=== PATIENT | female | born 1995 | race Caucasian/White ===

== ENCOUNTER → 2020-03-18 09:07 | Outpatient (CLI) | payer OTHER, SELFPAY ==
[2020-03-18 08:04] VITALS: BMI 25.3
[2020-03-18 09:24] LABS: Absolute Lymphocyte Count 1.43 X10^3/uL (0.83-4.51); Absolute Neutrophil Count 5.3 X10^3/uL (2.0-7.7); Basophil# 0.02 X10^3/uL; Basophil% 0.3 % (0-1); Eosinophil# 0.04 X10^3/uL; Eosinophils% 0.6 % (0-5); Hematocrit 39.9 % (37-47); Lymphocyte # 1.43 X10^3/ul (4.0); Lymphocyte % 19.9 % (19-41); Mean Corp Hgb Conc 32.6 g/dL (32-36); Mean Corpuscular Hgb 28.8 pg (27.0-32.0); Mean Corpuscular Volume 88.5 fL (81-99); Mean Platelet Vol. 9.5 fl (6.2-12.0); Monocyte# 0.35 X10^3/uL; Monocyte% 4.9 % (0-10); NRBC Flagged by Analyzer 0 % (0-5); Neutrophil # 5.34 X10^3/uL (2.7-7.7); Neutrophil % 74.2 % (47-70); Platelet Count 263 K/mm3 (150-450); RBC Distribution Width CV 13.2 % (11.6-14.6); RBC Distribution Width SD 42.5 fl (35.1-43.9); Red Blood Count 4.51 M/mm3 (4.2-5.4); White Blood Count 7.2 K/mm3 (4.4-11.0)
[2020-03-18 11:22] LABS: HIV - WCH Non-Reactive (Nonreactive); Hepatitis B Surface Antigen Non-Reactive (Nonreactive); Hepatitis C Antibody Non-Reactive (Nonreactive)
[2020-03-18 12:24] LABS: Rubella IgG < 0.2 IU/mL
[2020-03-18 16:15] LABS: Amphetamine Urine VISTA NEGATIVE (<1000 ng/mL); Barbiturate Urine VISTA NEGATIVE (< 200 ng/mL); Benzodiazepine Urine VISTA NEGATIVE (< 200 ng/mL); Cocaine Urine VISTA NEGATIVE (< 300 ng/mL); Ecstacy Urine VISTA NEGATIVE (< 500 ng/mL); Methadone Urine VISTA NEGATIVE (< 300 ng/mL); PCP Urine VISTA NEGATIVE (< 25 ng/mL); THC Urine VISTA NEGATIVE (< 50 ng/mL); Vista UDS pH Range 6
[2020-03-18 21:58] LABS: Chlamydia Trachomatis by PCR Negative (Negative); Neisserai gonorrhoeae by PCR Negative (Negative); Probe Check PASS; Sample Adequacy Control PASS; Specimen Processing Control PASS
[2020-03-20 21:56] LABS: Rapid Plasmin Reagin (RPR) NONREACTIVE (NONREACTIVE)
[2020-03-25 05:25] LABS: HPV Reflexed? NOT INDICATED
== END ==
PROVIDERS: PCP Family Medicine; Referring Provider Obstetrics & Gynecology; Visit Provider Obstetrics & Gynecology
DX: Z34.00 Encounter for supervision of normal first pregnancy, unspecified trimester (principal); Z12.4 Encounter for screening for malignant neoplasm of cervix
CPT/HCPCS: 36415; 80307; 85025; 86592; 86703; 86762; 86803; 86850; 86900; 86901; 87086; 87088; 87340; 87491; 87591; 88175; G0145

== ENCOUNTER → 2020-03-22 16:58 | Outpatient (CLI) | payer OTHER, SELFPAY ==
[2020-03-18 08:04] VITALS: BMI 25.3
--- NOTE | 2020-03-22 16:59 | US_ITS ---
STUDY: FIRST TRIMESTER OBSTETRICAL ULTRASOUND REASON FOR EXAM: Female, 24 years old. . Spotting. LMP: 12/22/2019 TECHNIQUE: Transvaginal PRIOR ULTRASOUND: None. FINDINGS: There is visualization of a single gestational sac in a normal intrauterine position. There is a visualized yolk sac. There is visualization of a live embryo. The crown-rump length (CRL) measures 6.61 cm, indicating an estimated gestational age (EGA) of 13 weeks, 0 days. The mean sac diameter corresponds to 10 weeks and 5 days. The sonographic age is 11 weeks and 6 days. The estimated delivery date is 10/05/2020. There is a 1.6 x 1.3 x 1.3 cm chorionic bump noted. There is demonstrated cardiac activity with a heart rate of 136 bpm. The uterus measures 11.0 x 10.7 x 7.2 cm. There is no demonstrated uterine fibroid. The cervix is closed. The right ovary measures 4.2 x 3.3 x 1.6 cm. There is no right ovarian cyst. There is no visualized right adnexal mass or complex lesion. The left ovary is not visualized. The cervix is not visualized. There is no fluid in the cul de sac. US/Transvaginal w/Preg US IMPRESSION: Single live intrauterine gestation, as described above. 1.6 x 1.3 x 1.3 cm chorionic bump. The differential diagnosis for this finding is a failed second gestation or a subchorionic hemorrhage bulging into the gestational sac. It can also be seen occasionally in patients undergoing fertility treatments. Electronically Signed: Wei Wang, at 18:34 EDT Tel , Service support ,
== END ==
PROVIDERS: PCP Family Medicine; Referring Provider Obstetrics & Gynecology; Visit Provider Obstetrics & Gynecology
DX: O26.851 Spotting complicating pregnancy, first trimester (principal); Z3A.13 13 weeks gestation of pregnancy
CPT/HCPCS: 76817

== ENCOUNTER → 2020-05-16 14:01 | Outpatient (CLI) | payer OTHER, SELFPAY ==
[2020-04-15 13:15] VITALS: BMI 25.3
--- NOTE | 2020-05-16 14:02 | US_ITS ---
STUDY: SECOND AND THIRD TRIMESTER OBSTETRICAL ULTRASOUND REASON FOR EXAM: Female, 24 years old anatomy LMP: 12/22/2019 TECHNIQUE: Transabdominal TECHNICAL QUALITY: Adequate. PRIOR ULTRASOUND: Comparison is made with prior study dated 03/22/2020. FINDINGS: There is a single intrauterine fetus. The fetus is in a cephalic presentation. There is demonstrated cardiac activity with a heart rate of 143 bpm. There is a normal amniotic fluid volume. The largest amniotic fluid pocket measures 3.8 cm x 3.2 cm. The amniotic fluid index (LENI) is within normal limits. The placenta is anterior in location and is not low lying. There are Grade 0 placental changes. The cervix measures 4.3 cm in length. The bilateral adnexal regions are normal. BIOMETRY: BPD: 4.74 cm: 20 weeks, 3 days HC: 18.35 cm: 20 weeks, 6 days AC: 15.85 cm: 21 weeks, 0 days FL: 3.51 cm: 21 weeks, 1 days CI: 75% FL/BPD: 74% FL/HC: FL/AC: 22% HC/AC: 1.16 age by current US: 20 weeks, 6 days. DYLAN by current US: 09/27/2020. Estimated weight: 390 grams, +/- 57 grams, 51 %. age by prior US: 19 weeks, 5 days. DYLAN by prior US: 10/05/2020. Age by LMP: 20 weeks, 6 days. DYLAN by LMP: 09/27/2020. ANATOMY: Gender: Female Cranium: Normal lateral ventricles. Normal choroid plexus. Normal cerebellum. Normal cisterna magna. Normal face, nose and lips. Chest: Normal 4-chamber heart. Abdomen/Pelvis: Normal diaphragm. Normal stomach. Normal abdominal wall. Normal cord insertion. Normal 3 vessel cord. Normal kidneys. Normal bladder. Spine: Normal cervical spine. Normal thoracic spine. Normal lumbar spine. Normal sacrum. Extremities: Normal bilateral upper extremities. Normal bilateral lower extremities. US/OB Anatomy Scan IMPRESSION: Single live intrauterine gestation with a mean gestational age of 19 weeks and 5 days. The measurements obtained today fall within the normal expected range. Electronically Signed: Azam Capellan, at 15:41 EDT , Service support ,
== END ==
PROVIDERS: PCP Family Medicine; Referring Provider Obstetrics & Gynecology; Visit Provider Obstetrics & Gynecology
DX: Z36.9 Encounter for antenatal screening, unspecified (principal)
CPT/HCPCS: 76805

== ENCOUNTER → 2020-07-10 09:05 | Outpatient (CLI) | payer OTHER, SELFPAY ==
[2020-06-17 15:02] VITALS: BMI 27.1
[2020-07-10 09:25] LABS: Absolute Neutrophil Count 4.7 X10^3/uL (2.0-7.7); Basophil# 0.03 X10^3/uL; Basophil% 0.5 % (0-1); Eosinophil# 0.03 X10^3/uL; Eosinophils% 0.5 % (0-5); Hematocrit 33.2 % (37-47); Hemoglobin 10.9 g/dL (12.0-15.0); Lymphocyte % 7.1 % (19-41); Mean Corp Hgb Conc 32.8 g/dL (32-36); Mean Corpuscular Hgb 29.6 pg (27.0-32.0); Mean Corpuscular Volume 90.2 fL (81-99); Mean Platelet Vol. 9.4 fl (6.2-12.0); Monocyte# 0.51 X10^3/uL; NRBC Flagged by Analyzer 0 % (0-5); Neutrophil # 4.67 X10^3/uL (2.7-7.7); Neutrophil % 82.5 % (47-70); POSITIVE DIFFERENTIAL YES; Platelet Count 220 K/mm3 (150-450); RBC Distribution Width CV 12.5 % (11.6-14.6); RBC Distribution Width SD 41.4 fl (35.1-43.9); Red Blood Count 3.68 M/mm3 (4.2-5.4); White Blood Count 5.7 K/mm3 (4.4-11.0)
[2020-07-10 09:40] LABS: Differential Indicated SCAN CRITERIA MET
[2020-07-10 09:45] LABS: Glucose Challenge Gest 1H 50g 94 mg/dL (70-140)
[2020-07-10 10:18] LABS: Platelet Estimate ADEQUATE (ADEQ); Red Cell Morphology NORM C+C NORMAL (NORM C&C)
== END ==
PROVIDERS: PCP Family Medicine; Referring Provider Obstetrics & Gynecology; Visit Provider Obstetrics & Gynecology
DX: Z34.90 Encounter for supervision of normal pregnancy, unspecified, unspecified trimester (principal); Z13.1 Encounter for screening for diabetes mellitus
CPT/HCPCS: 36415; 82950; 85025

== ENCOUNTER → 2020-09-04 | Outpatient (CLI) | payer OTHER, SELFPAY ==
[2020-09-04 10:54] VITALS: BMI 29.7
== END | disposition home or self-care (01) ==
LOC: LABSPEC 16:34
PROVIDERS: PCP Family Medicine; Visit Provider Obstetrics & Gynecology
DX: Z34.00 Encounter for supervision of normal first pregnancy, unspecified trimester (principal)
CPT/HCPCS: 87081

== ENCOUNTER 2020-09-19 11:10 | Outpatient (CLI) | payer OTHER, SELFPAY ==
[2020-09-10 13:05] VITALS: BMI 29.7
[2020-09-17 09:39] VITALS: BMI 29.9
[2020-09-19 11:53] VITALS: BP 116/70; PULSE 100; TEMP 37.2; O2SAT 94
[2020-09-19 12:13] VITALS: BMI 29.9
[2020-09-19 12:51] LABS: ROM Internal Control Test YES-OK TO RESULT pt. (Internal QC); ROM Patient Test Negative (Negative)
--- NOTE | 2020-09-19 13:10 | OB.TRI.PN ---
Progress Notes Date of Service: 09/19/20 Progress Note: Patient presents for triage evaluation secondary to leakage of fluid FHT: Moderate variability reactive no decelerations category I tracing [place]: No Contractions Assessment and plan: Reactive NST, ROM plus negative, reassuring maternal and status patient discharged to home to follow-up at next scheduled appointment. See problem list details for additional plan information. Laboratory Studies: Laboratory Tests 09/19/20 Range/Units 12:07 Vag Amniotic Fld Detect Negative (Negative) Multi Select Codes - Urinary/Genital Urinary/Genital CPT Codes: 39660-72 non-stress test Interp
== END 2020-09-19 13:15 | disposition home or self-care (01) ==
LOC: WPOUT 11:17 → OBT 11:18
PROVIDERS: PCP Family Medicine; Referring Provider Obstetrics & Gynecology; Visit Provider Obstetrics & Gynecology
DX: Z03.71 Encounter for suspected problem with amniotic cavity and membrane ruled out (principal)
CPT/HCPCS: 59025; 59050; 84112; 99218; C9803; G0378

== ENCOUNTER 2020-09-26 18:25 | Outpatient (CLI) | payer OTHER, SELFPAY ==
[2020-09-25 10:48] VITALS: BMI 30.6
[2020-09-26 18:46] VITALS: BMI 30.3
[2020-09-26 18:53] VITALS: BP 116/79; PULSE 90; TEMP 36.9; O2SAT 98
[2020-09-26 18:54] VITALS: BP 116/79; PULSE 85
--- NOTE | 2020-09-27 09:42 | OB.TRI.PN_ITS ---
Progress Notes Date of Service: 09/26/20 Progress Note: false labor no cervical change 130 moderate variability reactive no decelerations category I tracing [place]: no regular reactive NST dc home no change fu in office Multi Select Codes - Urinary/Genital Urinary/Genital CPT Codes: 56599-78 non-stress test Interp
== END 2020-09-26 20:41 | disposition home or self-care (01) ==
LOC: WPOUT 18:32 → WP 18:33
PROVIDERS: PCP Family Medicine; Referring Provider Obstetrics & Gynecology; Visit Provider Obstetrics & Gynecology
DX: O47.9 False labor, unspecified (principal); Z3A.00 Weeks of gestation of pregnancy not specified
CPT/HCPCS: 59025; 59050; 99218; G0378

== ENCOUNTER 2020-10-02 05:29 | Inpatient (IN) | payer OTHER, SELFPAY ==
[2020-10-02] VITALS (86 sets, daily range): BP systolic 100–152; BP diastolic 55–96; PULSE 69–116; TEMP 36.2–37.4; O2SAT 89–100; BMI 30.3
[2020-10-02] MEDS: Lactated Ringers 1,000 ML 200 ML IV ×3 (05:40→16:30)
[2020-10-02] MEDS: fentaNYL 100 MCG/2 ML Ampul IV (05:49)
[2020-10-02 05:51] LABS: Absolute Lymphocyte Count 1.37 X10^3/uL (0.83-4.51); Absolute Neutrophil Count 6.3 X10^3/uL (2.0-7.7); Basophil# 0.02 X10^3/uL; Basophil% 0.2 % (0-1); Eosinophil# 0.06 X10^3/uL; Eosinophils% 0.7 % (0-5); Hematocrit 34.8 % (37-47); Hemoglobin 10.8 g/dL (12.0-15.0); Lymphocyte # 1.37 X10^3/ul (4.0); Lymphocyte % 16.5 % (19-41); Mean Platelet Vol. 10.4 fl (6.2-12.0); Monocyte# 0.53 X10^3/uL; Monocyte% 6.4 % (0-10); NRBC Flagged by Analyzer 0 % (0-5); Neutrophil # 6.28 X10^3/uL (2.7-7.7); Neutrophil % 75.8 % (47-70); Platelet Count 228 K/mm3 (150-450); RBC Distribution Width CV 13.3 % (11.6-14.6); RBC Distribution Width SD 41.1 fl (35.1-43.9); White Blood Count 8.3 K/mm3 (4.4-11.0)
[2020-10-02] MEDS: Lactated Ringers 500 ML 999 ML IV ×3 (07:20→17:58)
--- NOTE | 2020-10-02 08:01 | PCM.HPOB.BLA ---
- Problem List (1) Active labor Status: Acute (2) 34 weeks gestation of Status: Acute Comment: electronic covid test ordered 08/21/2020sc (scheduled for 09/17/2020 at 0930) (3) Anemia affecting Status: Acute Comment: added iron (4) Influenza vaccination declined Status: Acute Comment: 06/17/2020sc (5) Rubella non-immune status, antepartum Status: Acute Comment: recommend avoidance, plan MMR . (6) Status: Acute Qualifiers: Comment: declines genetic, carrier and NTD. anatomy nl at [facility]. (7) Supervision of normal first Status: Acute Comment: PRR DYLAN 09/27/2020 [place] Spouse: Ambrosio History and Physical Date of Admission: 10/02/20 Intake Vital Signs 09/25/20 BP 122/80 H 09/25/20 Height 5 ft 3 in 09/25/20 Weight: 173 lb 09/25/20 BMI 30.6 Intake Visit Reasons: 39WK OB Chief Complaint: est ob Icer Machine Required: No Is patient in pain?: No Allergies No Known Allergies Allergy (Verified 09/25/20 10:51) Medications multivitamin no.47-iron fum 27 mg-folate no.1 1 mg-dha 300 mg capsule 1 cap PO DAILY 03/18/20 [History Confirmed 09/25/20] ferrous sulfate 325 mg (65 mg iron) tablet 325 mg PO BID 07/22/20 [History Confirmed 09/25/20] Last Menstral Period: 12/27/19 Zika: Zika virus screening: Negative : No [facility] Medical History No significant past medical history (Acute) Surgical History No significant past surgical history (Acute) Family History Father Hypertension Grandmother Cancer Heart disease Social History (Updated 09/25/20 @ 11:[address] 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 OB Visit DYLAN Calculator Estimated Delivery Date Method Current WG Current Estimate 09/27/20 Ultrasound #1 39w 5d Other Estimates 08/24/20 LMP (Uncertain) 44w 4d Expected Delivery Route/Plan Labor Preferences- CB/BF classes: encouraged - patient wants classes but undecided labor support person: Ambrosio labor intervention preferences: open to pitocin/AROM. Needs to discuss baby meds with pain management options preferred: desires natural, but open to epidural cut cord/dad catch: no : yes PP control planned: [] discussed possible routes of delivery and associated risks: discussed possible delivery modalities and possible indications for each including R/B/A of , VAVD, FAVD, and CS. questions answered. special requests: to announce gender Specific Issue/Plans flu vaccine: declines tdap vaccine: declines rhogam: NA LARC form signed: signed 07/10 movement and labor precautions reviewed. Problem list reviewed and updated with the most current plan of care details and appropriate orders placed. Relevant counseling for the gestational age provided. Continue routine care and follow up unless otherwise noted in visit notes/problem list details Initial Weight: 143 lb Date EGA Weight BP Urine Prot Glucose FHR FuHt Pres Dilation Effaced St Visit Note 04/15/20 16w 3d 143 lb (+0 oz) 104/76 Negative Negative 145 SM- no vb cramping, some ZHOU discussed supportive care 05/16/20 20w 6d 145 lb (+2 lb) 110/72 Negative Negative 145 SM- no vb cramping 06/17/20 25w 3d 153 lb (+10 lb) 122/80 Negative Negative 130 25 GP - no cramping or bleeding. Anatomy scan reviewed. Do not plan to find out gender. 07/10/20 28w 5d 158 lb 8 oz (+15 lb 8 oz) 110/76 Negative Negative 135 28 GP - no ctx, LOF, VB, DFM. GTT normal. LARC form signed - declines. Declines flu and TDAP. 07/22/20 30w 3d 158 lb (+15 lb) 122/84 Negative Negative 135 30 SM- no vb lof good fm no regular ctx 08/07/20 32w 5d 161 lb 4 oz (+18 lb 4 oz) 112/72 Negative Negative 125 32 GP - no ctx, LOF, VB, DFM. discussed labor preferences and routes of delivery. Planning on going bow hunting with . 08/21/20 34w 5d 163 lb (+20 lb) 114/80 Negative Negative 140 34 GP - no LOF, VB, DFM, regular ctx. Denies complaints. GP - no LOF, VB, DFM, regular ctx. Denies complaints. Having whole family over for Thanksgiving. 09/04/20 36w 5d 168 lb 2 oz (+25 lb 2 oz) 128/82 Negative Negative 135 36 Cephalic 0.5 40 -2 GP - no LOF, VB, dFM, reg ctx. GBS done today. 09/10/20 37w 4d 168 lb (+25 lb) 112/84 Negative Negative 140 37 Cephalic 1 60 -2 SM- no vb lof good fm no regular ctx 09/17/20 38w 4d 169 lb 4 oz (+26 lb 4 oz) 126/88 Trace Negative 145 38 Cephalic 1 60 -2 GP - no LOF, VB, DFM, ctx. Labor precautions reviewed. 09/25/20 39w 5d 173 lb (+30 lb) 122/80 145 39 Cephalic 1 70 -2 SM- no vb lof good fm no regular ctx discussed IOL 41 weeks cytotec ACOG First Trimester First Trimester: Desire for , Alcohol, Tobacco Cessation, Illicit/Recreational Drug/Substance Use, Intimate Partner Violence, Barriers to care, Unstable Housing, Communication Barriers, Environmental/Work Hazards, Anticipated Course of Care, Toxoplasmosis Precations, Use of Any medications, Sexual activity, Exercise, Dental Care, Sauna/Hot tub use, Seat Belt use, Childbirth classes/Hospital facilities, , Travel, Indications for US and Screening for Aneuploidy Diagnostics Diagnostics Diagnostics Glucose 1 Hr 50 gm 94 mg/dL (70-140) 07/10/20 Hgb 10.9 g/dL (12.0-15.0) L 07/10/20 Hct 33.2 % (37-47) L 07/10/20 Details: HIV: Urine Culture: Sequential Screen: NIPT Screen: ROS Const Reports system reviewed and no additional complaints, except as docu Card Reports system reviewed and no additional complaints, except as docu Resp Reports system reviewed and no additional complaints, except as docu GI Reports system reviewed and no additional complaints, except as docu, Reports nausea Reports system reviewed and no additional complaints, except as docu Musc Reports system reviewed and no additional complaints, except as docu Exam Const General: cooperative, healthy appearing, comfortable, anxious HENMT Head: normal to inspection Nose: external nose normal Face and sinus: normal facial exam Neck Neck: normal visual inspection, full ROM, no lymphadenopathy Thyroid: thyroid normal Chest Chest palpation & inspection: normal inspection of the chest Resp Effort & Inspection: normal respiratory effort GI Inspection: normal to inspection Palpation: soft, other (gravid uterus) Other: infant vertex and appropriate size for gestational age Other: Cervical Exam: Extrem General: pedal edema Assessment & Plan Problems 1. Supervision of normal first Z34.00 PRR DYLAN 09/27/2020 [place] Spouse: Ambrosio 2. Z34.90 declines genetic, carrier and NTD. anatomy nl at [facility]. 3. Rubella non-immune status, antepartum O99.891; Z28.3 recommend avoidance, plan MMR . 4. Influenza vaccination declined Z28.21 06/17/2020sc 5. Anemia affecting O99.019 added iron 6. 34 weeks gestation of Z3A.34 electronic covid test ordered 08/21/2020sc (scheduled for 09/17/2020 at 0930) Plan Patient presents IAL, plan expectant management for , pitocin/AROM PRN if needed. Pain management: plans epidural. GBS negative. Management of any complications: none I have reviewed the [facility] and made any clinically relevant updates. UPDATE- I have seen the patient and performed any clinically relevant updates to the history and physical exam. Mayuri Mckeon MD
[2020-10-02] MEDS: fentaNYL-bupivacaine (epidural) 100 ML BAG EPIDURAL ×2 (08:22→13:07)
[2020-10-02] MEDS: Oxytocin 30 units/NS 500 ml 30 UNITS/500 ML IV.SOLN IV (09:57)
[2020-10-02] MEDS: Oxytocin 30 units/NS 500 ml 30 UNITS/500 ML IV.SOLN 334 UNITS IV (18:38)
--- NOTE | 2020-10-02 19:22 | PCM.OPRPT ---
Problem List (1) Active labor Status: Acute (2) 34 weeks gestation of Status: Acute Comment: electronic covid test ordered 08/21/2020sc (scheduled for 09/17/2020 at 0930) (3) Anemia affecting Status: Acute Comment: added iron (4) Influenza vaccination declined Status: Acute Comment: 06/17/2020sc (5) Rubella non-immune status, antepartum Status: Acute Comment: recommend avoidance, plan MMR . (6) Status: Acute Qualifiers: Comment: declines genetic, carrier and NTD. anatomy nl at [facility]. (7) Supervision of normal first Status: Acute Comment: PRR DYLAN 09/27/2020 [place] Spouse: Ambrosio Vaginal Delivery Maternal Presentation: Active Labor 25-year-old G1, P0 at 40 weeks gestation admitted out of triage in active labor. Patient was augmented with Pitocin. Patient made cervical change to complete dilation and pushed for 2 hours with good maternal effort. head was noted to be at +2 station. The patient was becoming increasingly exhausted and maternal effort was worsening due to her level of exhaustion. Discussed with patient options for operative vaginal delivery versus continued pushing. Discussed with patient that given the amount of molding present, I recommend proceeding with a forceps assisted vaginal delivery if she elected for operative delivery. Patient voiced desire for operative vaginal delivery. The risk, benefits, indications, and alternatives to an operative vaginal delivery were discussed with the patient and she agreed to proceed. Amniotic Membrane Rupture Type: Spontaneous Amniotic Fluid Description: Clear Final DYLAN: 09/27/20 Gestational age: 40 Weeks and 5 Days Date of Procedure: 10/02/20 Pre-Operative Diagnosis: Term , active labor, maternal exhaustion Post-Operative Diagnosis: Same Surgery/ Procedure Performed: Forceps Assisted Vaginal Delivery Type of Anesthesia: Epidural Description of Procedure: The maternal bladder was drained. Ki[place] forceps were applied in the standard fashion and noted to be seated correctly along the sides of the head. Moderate caput and molding were noted. After a total of 4 pulls, the head was delivered atraumatically and no nuchal cord was noted. The anterior and posterior shoulders delivered without complication followed by the rest of the and the was placed on the maternal abdomen. The infant was noted to be somewhat stunned, therefore the cord was immediately clamped and cut and the was taken to the warmer by the nursery nurse. Gentle traction was applied to the cord and the placenta delivered spontaneously immediately following it was noted to be intact with three-vessel cord. The perineum and vagina were inspected and bilateral sulcal lacerations, bilateral labial lacerations, and a midline second-degree laceration were noted and repaired using 3-0 Vicryl Rapide suture. EBL was 350 cc. Patient and infant tolerated delivery well. Presentation: Vertex, LOP Placental Delivery Description: Spontaneous Placenta Disposition: [facility] Cord Vessel Description: 3 Vessels Cord Entanglement: None Estimated Blood Loss: 350 cc Infant A gender: Female Laceration: Left Mediolateral, Right Mediolateral, Perineal Extension/lac, Vaginal Extension/lac, 2nd degree Medications given after delivery: IV Pitocin Complications: None Multi Select Codes - Urinary/Genital Urinary/Genital CPT Codes: 33157 Vaginal Delivery global pkg - forceps assisted delivery
--- NOTE | 2020-10-02 19:32 | DCINST_ITS ---
Discharge Diet: No Restrictions Discharge Activity: Return to Normal Activity, May not drive while taking narcotic pain medications., May Shower May resume sexual activity in: 4-6 weeks Additional Activity Instructions:: Nothing in the vagina for 4-6 weeks. You may return to work/school in 6 weeks. Call your doctor if your incision/area has: Continuous Slow Oozing, Sudden Increased Bleeding, Increased Pain/ Swelling, Increased Redness, Foul Smelling Discharge Additional Instructions: If you experience any of the following, contact your healthcare provider. * Bleeding that soaks a pad every hour for 2 hours * Fever 100.4 or higher * Unrelieved incision or abdominal pain * Swelling, redness, discharge or bleeding from your incision or episiotomy site * Your incision begins to separate * Problems urinating (including inability to urinate or burning while urinating). * Visual changes * Severe headache * Flu-like symptoms * Pain or redness in one of both of your breasts * Pain, warmth, tenderness or swelling in your legs, especially the calf area * Frequent nausea and vomiting * Symptoms of depression or anxiety If you experience any of the following, call 911 or go to the nearest Emergency Room. * Chest pain * Problems breathing * Seizure activity * Partial or complete paralysis of a body part, slurred speech, weakness or drooping of the face, or a sudden inability to walk or hold your balance Allergies/Adverse Reactions: Allergies No Known Allergies Allergy (Verified 10/02/20 05:35) Medications to take at Discharge multivitamin no.47-iron fum 27 mg-folate no.1 1 mg-dha 300 mg capsule 1 cap PO DAILY 03/18/20 ferrous sulfate 325 mg (65 mg iron) tablet 325 mg PO BID 07/22/20 Cholecalciferol (Vitamin D3) [Vitamin D3] 25 mcg PO DAILY 10/02/20 Falkner-3 Fatty Acids/Fish Oil [Falkner 3 Fish Oil Softgel] 1 ea PO DAILY 10/02/20 When: Call to make an appointment with your doctor in 6 weeks. If you had elevated Blood Pressure or 4th degree laceration you will need to be seen in 2 weeks. Primary Care Physician: Luis Prather DO [Primary Care Provider] - Test Results: Test results from this visit will be discussed in further detail at your follow- up appointment, if applicable.
--- NOTE | 2020-10-02 19:46 | NURSING ---
1945- uncertain time of rupture for certain, pt did not feel any leaking fluids, had bulging bow at 0524 and no membrane/bow felt at the 0728 check. during labor fluid was clear
[2020-10-02] MEDS: Naproxen 250 MG Tablet 500 MG PO (20:38)
[2020-10-02] MEDS: Acetaminophen 500 MG Tablet 1000 MG PO (20:57)
--- NOTE | 2020-10-02 22:34 | NURSING ---
Pt noted to have b/l mediolateral (sucal), perineal and vaginal 2 degree tear
[2020-10-03 00:05] VITALS: BP 105/59; PULSE 104; RESP 16; TEMP 37.3
[2020-10-03 03:39] VITALS: BP 98/58; PULSE 91; RESP 16; TEMP 36.7
[2020-10-03] MEDS: Acetaminophen 500 MG Tablet 1000 MG PO ×3 (03:42→20:14)
[2020-10-03] MEDS: Naproxen 250 MG Tablet 500 MG PO ×3 (03:42→20:15)
--- NOTE | 2020-10-03 08:08 | PN_ITS ---
Patient Problems: Active and Suspected Problems (Last Reviewed 09/25/20 @ 10:51 by Liana House) Active labor (Acute) 34 weeks gestation of (Acute) electronic covid test ordered 08/21/2020sc (scheduled for 09/17/2020 at 0930) Anemia affecting (Acute) added iron Influenza vaccination declined (Acute) 06/17/2020sc Rubella non-immune status, antepartum (Acute) recommend avoidance, plan MMR . (Acute) declines genetic, carrier and NTD. anatomy nl at [facility]. Supervision of normal first (Acute) PRR DYLAN 09/27/2020 [place] Spouse: Ambrosio Subjective: Patient doing well without complaints. Tolerating PO. Ambulating and voiding without difficulty. breast feeding well. Denies chest pain, shortness of breath, calf pain/swelling, fevers, chills, lightheadedness. - Physical Exam Vitals/I&O's: Vital Signs Temp Pulse Resp BP Pulse Ox 98.0 F 91 16 98/58 L 100 10/03/20 03:39 10/03/20 03:39 10/03/20 03:39 10/03/20 03:39 10/02/20 18:28 Oxygen Delivery Method Room Air Weight: 171 lb 4.787 oz Body Mass Index (BMI) 30.3 Intake and Output for Last 24 Hours 10/01/20 10/02/20 10/03/20 23:59 23:59 23:59 Intake Total 5485.05 / 5485.05 Output Total 275 / 275 1500 / 1500 Balance 5210.05 / 5210.05 -1500 / -1500 General: Alert, Oriented x3 Abdomen: Soft, Non Tender, Non-Distended, - - ff below U Current Medications Acetaminophen (Acetaminophen 500 Mg Tablet) 1,000 mg PO Q8H OWEN Last Admin: 10/03/20 03:42 Dose: 1,000 mg Documented by: Bisacodyl (Bisacodyl 10 Mg Suppository) 10 mg RECTAL UD PRN PRN Reason: If no BM Dibucaine (Dibucaine 30 Gm Tube) 1 applic TOPICAL TID PRN PRN; Protocol PRN Reason: Discomfort Hydrocortisone (Hydrocortisone 2.5% Crm) 1 applic TOPICAL TID PRN PRN; Protocol PRN Reason: Discomfort Methylergonovine Maleate (Methylergonovine 0.2 Mg/Ml Ampul) 0.2 mg IM X1 PRN PRN Reason: Excess bleeding/uterine atony Naproxen (Naproxen 250 Mg Tablet) 500 mg PO Q8H OWEN Last Admin: 10/03/20 03:42 Dose: 500 mg Documented by: Ondansetron HCl (Ondansetron 4 Mg/2 Ml Vial) 4 mg IV Q4H PRN PRN PRN Reason: Nausea Oxycodone HCl (Oxycodone 5 Mg Tablet) 5 mg PO Q4H PRN PRN PRN Reason: Pain Score 6-10 Senna/Docusate Sodium (Senna/Docusate Sodium 1 Tablet) 1 - 2 tablet PO DAILY PRN PRN PRN Reason: Constipation Simethicone (Simethicone 80 Mg Tablet) 80 mg PO PCHS PRN PRN Reason: Indigestion/Stomach pain Sodium Chloride (0.9% Saline Lock 10 Ml Syringe) 5 - 15 ml IV UD PRN PRN Reason: SALINE FLUSH Medical Necessity - Tobacco Use Smoking Status: Never smoker Assessment/Plan All Active Problems (Last Reviewed 09/25/20 @ 10:51 by Liana House) Active labor (Acute) 34 weeks gestation of (Acute) Anemia affecting (Acute) Influenza vaccination declined (Acute) Rubella non-immune status, antepartum (Acute) (Acute) Supervision of normal first (Acute) s/p PPD # 1 1. routine post delivery care 2. breast feeding- support given 3. rh positive 4. rubella nonimmune
[2020-10-03 08:09] VITALS: BP 103/60; PULSE 87; RESP 16; TEMP 36.8; O2SAT 98
[2020-10-03 12:23] VITALS: BP 93/52; PULSE 105; RESP 16; TEMP 37; O2SAT 96
[2020-10-03 16:15] VITALS: BP 108/65; PULSE 90; RESP 18; TEMP 37.2; O2SAT 97
[2020-10-03 20:00] VITALS: BP 108/58; PULSE 99; RESP 16; TEMP 36.8; O2SAT 100
[2020-10-04 02:16] VITALS: BP 97/72; PULSE 89; RESP 16; TEMP 36.3; O2SAT 99
[2020-10-04] MEDS: Acetaminophen 500 MG Tablet 1000 MG PO (05:38)
[2020-10-04] MEDS: Naproxen 250 MG Tablet 500 MG PO (05:38)
[2020-10-04 08:29] VITALS: BP 112/67; PULSE 82; RESP 15; TEMP 36.7; O2SAT 97
--- NOTE | 2020-10-04 09:47 | PCM.PN.OB ---
Patient Problems: Active and Suspected Problems (Last Reviewed 09/25/20 @ 10:51 by Liana House) Active labor (Acute) 34 weeks gestation of (Acute) electronic covid test ordered 08/21/2020sc (scheduled for 09/17/2020 at 0930) Anemia affecting (Acute) added iron Influenza vaccination declined (Acute) 06/17/2020sc Rubella non-immune status, antepartum (Acute) recommend avoidance, plan MMR . (Acute) declines genetic, carrier and NTD. anatomy nl at [facility]. Supervision of normal first (Acute) PRR DYLAN 09/27/2020 [place] Spouse: Ambrosio Subjective: Patient doing well without complaints. Tolerating PO. Ambulating and voiding without difficulty. Breast feeding well. Denies chest pain, shortness of breath, calf pain/swelling, fevers, chills, lightheadedness. - Physical Exam Vitals/I&O's: Vital Signs Temp Pulse Resp BP Pulse Ox 98.0 F 82 15 112/67 97 10/04/20 08:29 10/04/20 08:29 10/04/20 08:29 10/04/20 08:29 10/04/20 08:29 Oxygen Delivery Method Room Air Weight: 171 lb 4.787 oz Body Mass Index (BMI) 30.3 Intake and Output for Last 24 Hours 10/02/20 10/03/20 10/04/20 23:59 23:59 23:59 Intake Total 5485.05 / 5485.05 Output Total 275 / 275 1500 / 1500 Balance 5210.05 / 5210.05 -1500 / -1500 General: Alert, Oriented x3, Cooperative, No apparent distress, Well developed, Well nourished HEENT: Atraumatic, PERRLA, EOMI, Normocephalic Neck: Supple, No JVD Lungs: Normal air movement Cardiovascular: Regular rate Abdomen: Soft, Non Tender, Non-Distended, - - fundus firm Extremities: No edema, No Calf Tenderness Neurological: Cranial nerves II-XII grossly intact, Neuro grossly intact Psych/Mental Status: Normal Affect, Appropriate Current Medications Acetaminophen (Acetaminophen 500 Mg Tablet) 1,000 mg PO Q8H OWEN Last Admin: 10/04/20 05:38 Dose: 1,000 mg Documented by: Bisacodyl (Bisacodyl 10 Mg Suppository) 10 mg RECTAL UD PRN PRN Reason: If no BM Dibucaine (Dibucaine 30 Gm Tube) 1 applic TOPICAL TID PRN PRN; Protocol PRN Reason: Discomfort Hydrocortisone (Hydrocortisone 2.5% Crm) 1 applic TOPICAL TID PRN PRN; Protocol PRN Reason: Discomfort Methylergonovine Maleate (Methylergonovine 0.2 Mg/Ml Ampul) 0.2 mg IM X1 PRN PRN Reason: Excess bleeding/uterine atony Naproxen (Naproxen 250 Mg Tablet) 500 mg PO Q8H OWEN Last Admin: 10/04/20 05:38 Dose: 500 mg Documented by: Ondansetron HCl (Ondansetron 4 Mg/2 Ml Vial) 4 mg IV Q4H PRN PRN PRN Reason: Nausea Oxycodone HCl (Oxycodone 5 Mg Tablet) 5 mg PO Q4H PRN PRN PRN Reason: Pain Score 6-10 Senna/Docusate Sodium (Senna/Docusate Sodium 1 Tablet) 1 - 2 tablet PO DAILY PRN PRN PRN Reason: Constipation Simethicone (Simethicone 80 Mg Tablet) 80 mg PO PCHS PRN PRN Reason: Indigestion/Stomach pain Sodium Chloride (0.9% Saline Lock 10 Ml Syringe) 5 - 15 ml IV UD PRN PRN Reason: SALINE FLUSH Medical Necessity - Tobacco Use Smoking Status: Never smoker Assessment/Plan All Active Problems (Last Reviewed 09/25/20 @ 10:51 by Liana House) Active labor (Acute) 34 weeks gestation of (Acute) Anemia affecting (Acute) Influenza vaccination declined (Acute) Rubella non-immune status, antepartum (Acute) (Acute) Supervision of normal first (Acute) s/p PPD # 2 1. routine post delivery care 2. breast feeding- support given 3. rh positive 4. rubella immune
--- NOTE | 2020-10-04 10:37 | NURSING ---
pt refused mmr vaccine
== END 2020-10-04 10:45 | disposition home or self-care (01) | DRG 807 ==
LOC: WPOUT 05:30 → WP 05:30
PROVIDERS: Admitting Provider Obstetrics & Gynecology; PCP Family Medicine; Referring Provider Obstetrics & Gynecology; Visit Provider Obstetrics & Gynecology
DX: O75.81 Maternal exhaustion complicating labor and delivery (principal); Z37.0 Single live birth; Z3A.40 40 weeks gestation of pregnancy; D64.9 Anemia, unspecified; O99.02 Anemia complicating childbirth; O70.1 Second degree perineal laceration during delivery
CPT/HCPCS: 59025; 59050; 85025; 86850; 86900; 86901; 99218; J7120; G0378

== ENCOUNTER 2020-12-22 09:54 | Emergency (ER) | payer OTHER, SELFPAY ==
[2020-11-15 10:36] VITALS: BMI 26.7
[2020-12-22 09:55] VITALS: BP 119/91; PULSE 109; RESP 16; TEMP 36.3; O2SAT 100; BMI 24.7
--- NOTE | 2020-12-22 10:08 | ED.DCSUM_ITS ---
- ER Visit Summary Date of Service: 12/22/20 Chief Complaint: Abdominal cramping with nausea, vomiting and diarrhea History of Present Illness: The patient is a 25 F seen in past medical history and no prior surgical history. Patient is status post vaginal delivery about 3 months ago without complications. States she has been feeling well. Has had no recent symptoms. When she awoke this morning she had nausea then vomiting and diarrhea. She has had diffuse abdominal cramping since that time. States diarrhea is watery. She denies any melena or hematemesis. No fever. No localizing pain. She is never had any abdominal surgeries. She denies any dysuria. No one else at home is ill. Physical Examination: Well-appearing 25-year-old female. Accompanied by family. Vital signs are stable afebrile. H EENT exam unremarkable. Moist with membranes. Neck nontender no lymphadenopathy. Lungs clear to auscultation bilaterally. Heart regular rhythm rate about 100 105 no murmur. Abdomen is soft. Nondistended. Normal bowel sounds. No peritoneal signs. No signs of obstruction. No localizing tenderness to either the right upper nor the right lower quadrant. Patient is moving all 4 extremities. Nontender. No edema. Back nontender. Skin unremarkable. Neurologically she is awake alert with no focal motor deficits. Test Results: None Repeat exam at 11:03 AM patient is doing well. Abdomen is benign. She is receiving IV fluids and is already received her Zofran. She is currently drinking some marcus desire. Emergency Department Course and Treatment: Patient's history and exam are consistent with a viral gastroenteritis. Her abdomen is benign. She is really not tender anywhere in the abdomen. She will be treated with IV fluids times a liter. IV Zofran. Reassessed and p.o. fluid challenge. Treatment Plan: Zofran as needed for nausea. Fluids and rest. Return if worse. Follow-up if not improving. Disposition: Discharge Impression: Acute viral gastroenteritis Mild dehydration This note was generated with [employer] dictation software. It may contain incorrect words, spelling, and punctuation that were not noted in review of the chart prior to signing ED Disposition - Plan for ED Patient: Disposition: Home or Assisted Living Instructions: ED Gastroenteritis, Viral (Adult) Prescriptions: Ondansetron [Zofran Odt] 4 mg PO Q8H PRN PRN #10 tablet PRN Reason: Nausea Prescription Printed Referrals: Luis Prather, [Primary Care Provider] - 1-2 Days if not improving Additional Instructions: Plenty of fluids and rest. Tylenol and/or Motrin for pain Zofran as needed for nausea. Return if you are feeling worse or unable keep fluids down. Follow-up with your doctor if not improving.
--- NOTE | 2020-12-22 10:11 | ED.DEP ---
ED Disposition - Plan for ED Patient: Disposition: Home or Assisted Living Instructions: ED Gastroenteritis, Viral (Adult) Prescriptions: Ondansetron [Zofran Odt] 4 mg PO Q8H PRN PRN #10 tablet PRN Reason: Nausea Prescription Printed Referrals: Luis Prather DO [Primary Care Provider] - 1-2 Days if not improving Additional Instructions: Plenty of fluids and rest. Tylenol and/or Motrin for pain Zofran as needed for nausea. Return if you are feeling worse or unable keep fluids down. Follow-up with your doctor if not improving.
[2020-12-22] MEDS: 0.9% Normal Saline 1,000 ML 1000 ML IV (10:45)
[2020-12-22] MEDS: Ondansetron 4 MG/2 ML Vial IV (10:45)
[2020-12-22 11:58] VITALS: BP 124/77; PULSE 68; RESP 15; O2SAT 98
== END 2020-12-22 12:00 | disposition home or self-care (01) ==
PROVIDERS: Emergency Provider Emergency Medicine; PCP Family Medicine
DX: A08.4 Viral intestinal infection, unspecified (principal); E86.0 Dehydration
CPT/HCPCS: 96361; 96374; 99284; J7030; A4216; J2405

== ENCOUNTER → 2023-09-21 | Outpatient (CLI) | payer SELFPAY ==
[2023-09-21 13:27] LABS: hCG Titer Quant., Serum 5505 mIU/mL (1-3)
== END | disposition home or self-care (01) ==
LOC: LAB 12:02
PROVIDERS: PCP Family Medicine; Referring Provider Obstetrics & Gynecology; Visit Provider Obstetrics & Gynecology
DX: N92.0 Excessive and frequent menstruation with regular cycle (principal)
CPT/HCPCS: 36415; 84702

== ENCOUNTER → 2023-09-23 | Outpatient (CLI) | payer SELFPAY ==
--- NOTE | 2023-09-23 15:25 | US_ITS ---
STUDY: FIRST TRIMESTER OBSTETRICAL ULTRASOUND REASON FOR EXAM: Female, 28 years old viability LMP: . TECHNIQUE: Transvaginal TECHNICAL QUALITY: Adequate. PRIOR ULTRASOUND: None. FINDINGS: There is visualization of a single gestational sac in a normal intrauterine position. The mean sac diameter (MSD) measures 1.7 cm, indicating an estimated gestational age (EGA) of 6 weeks, 4 days. The gestational sac shape is within normal limits. There is a visualized yolk sac. The yolk sac measures 0.3 cm. The placenta is non-visualized. There is visualization of a live embryo. The crown-rump length (CRL) measures 0.9 cm, indicating an estimated gestational age (EGA) of 7 weeks, 0 days. There is demonstrated cardiac activity with a heart rate of 90 bpm. The estimated gestation age (EGA) by LMP is 7 weeks, 5 days. The estimated date of delivery (DYLAN) by LMP is 05/06/2024. The estimated gestation age (EGA) by US is 6 weeks, 6 days. The estimated date of delivery (DYLAN) by US is 05/12/2024. The uterus measures 8.9 x 6.4 x 4.9 cm. There is no demonstrated uterine fibroid. The cervix is closed. The right ovary measures 4.2 x 2.3 x 1.8 cm. There is no right ovarian cyst. There is no visualized right adnexal mass or complex lesion. The left ovary measures 3.8 x 2.7 x 2.5 cm. Within the left ovary there is a cyst measuring 1.8 x 1.2 x 1.6 cm with mild thickening of the wall and peripheral flow most compatible with corpus luteum cyst. There is no visualized left adnexal mass or complex lesion. There is minimal fluid in the cul de sac. US/Transvaginal w/Preg US IMPRESSION: Single intrauterine gestation with ultrasound age of 6 weeks and 6 days and estimated date of delivery of 05/12/2024. cardiac activity of 90 bpm. Remainder of the exam unremarkable. Electronically Signed: Valorie Shelley MD at 17:18 EST ,
== END | disposition home or self-care (01) ==
LOC: US 15:24
PROVIDERS: PCP Family Medicine; Referring Provider Advanced Practice Midwife; Visit Provider Advanced Practice Midwife
DX: O26.859 Spotting complicating pregnancy, unspecified trimester (principal); Z3A.00 Weeks of gestation of pregnancy not specified
CPT/HCPCS: 76817

== ENCOUNTER → 2023-09-23 | Outpatient (CLI) | payer SELFPAY ==
[2023-09-23 11:39] LABS: hCG Titer Quant., Serum 6279 mIU/mL (1-3)
== END | disposition home or self-care (01) ==
PROVIDERS: PCP Family Medicine; Referring Provider Advanced Practice Midwife; Visit Provider Advanced Practice Midwife
DX: O26.859 Spotting complicating pregnancy, unspecified trimester (principal); Z3A.00 Weeks of gestation of pregnancy not specified
CPT/HCPCS: 36415; 84702

== ENCOUNTER → 2023-09-29 | Outpatient (CLI) | payer SELFPAY ==
[2023-09-29 12:06] LABS: hCG Titer Quant., Serum 208 mIU/mL (1-3)
[2023-09-29 12:12] LABS: Thyroid Stim Hormone (TSH) 1.15 uIU/mL (0.358-3.74)
[2023-10-08 21:07] LABS: Testosterone Free 1.4 pg/mL (0.0-4.2)
== END | disposition home or self-care (01) ==
LOC: PAVLAB 11:19
PROVIDERS: Advanced Practice Midwife; PCP Family Medicine; Referring Provider Registered Nurse; Visit Provider Registered Nurse
DX: O03.9 Complete or unspecified spontaneous abortion without complication (principal); N92.6 Irregular menstruation, unspecified
CPT/HCPCS: 36415; 82627; 83036; 84402; 84439; 84443; 84702; 82626

== ENCOUNTER → 2023-10-01 | Outpatient (CLI) | payer SELFPAY ==
--- OUTSIDE RECORDS SUMMARY | 2023-10-01 08:02 | XMS RPT_ITS | CCD ---
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 School Name Role Phone NICK MARRBRANDO Steven Unavailable Unavailable JEM CUNNINGHAM Unavailable Unavailable JEM CUNNINGHAM Unavailable Unavailable JED SILVERMAN Unavailable Unavailable GABRIELLA VICENTE Unavailable Unavailable WELLINGTON ADHKIZZY Unavailable Unavailable LEIGHANN, SASHA WALLS Unavailable Unavaila ble LAWTON, SASHA KAVITA Unavailable Unavaila ble LAWTON, SASHA KAVITA Unavailable Unavaila ble Results Test Name Value Interpretation Reference Range Facil ity Encounters Encounter Date Encounter Type Care Provider Facility Start: 05-17-2018 End: 05-17-2018 Patient encounter SASHA KAVITA LAWTON [facility] Start: 07-08-2017 End: 07-10-2017 Ambulatory [facility]OR[facility] MARR Facility:A Payers Date Payer Category Payer Unknown [id number] Summary Purpose Family History No Family History Records FoundNo Family History Records Found Advance Directives No Advanced Directives Records FoundNo Advanced Directives Records Found Additional Source Comments INFORMATION SOURCE (unrecogn ized section and content) DATE CREATED AUTHOR AUTHOR'S ORGANIZ ATION 05/22/2018 [facility] FOR RECORDS PERTAINING TO PATIENTS WHO ARE OR HAVE BEEN ENROLLED IN A CHEMICAL DEPENDENCY/SUBSTANCEABUSE PROGRAM, SOME INFORMATION MAY BE OMITTED. This clinical summary was aggregated from multiple sources. Caution should be exercised in using it in the provision of clinical care. This summary normalizes information from multiple sources, and as a consequence, information in this document may materially change the coding, format and clinical context of patient data. In addition, data may be omitted in some cases. CLINICAL DECISIONS SHOULD BE BASED ON THE PRIMARY CLINICAL RECORDS. [facility] [employer] provides no warranty or guarantee of the accuracy or completeness of information in this document.
[2023-10-01 08:48] LABS: hCG Titer Quant., Serum 96 mIU/mL (1-3)
== END | disposition home or self-care (01) ==
PROVIDERS: PCP Family Medicine; Referring Provider Advanced Practice Midwife; Visit Provider Advanced Practice Midwife
DX: O03.9 Complete or unspecified spontaneous abortion without complication (principal)
CPT/HCPCS: 36415; 84702

== ENCOUNTER → 2023-10-11 | Outpatient (CLI) | payer SELFPAY ==
[2023-10-11 12:22] LABS: hCG Titer Quant., Serum 4 mIU/mL (1-3)
== END | disposition home or self-care (01) ==
PROVIDERS: PCP Family Medicine; Referring Provider Registered Nurse; Visit Provider Registered Nurse
DX: O03.9 Complete or unspecified spontaneous abortion without complication (principal)
CPT/HCPCS: 36415; 84702

== ENCOUNTER → 2024-02-24 | Outpatient (CLI) | payer SELFPAY ==
[2024-02-24 10:30] LABS: Internal QC Validated? YES +Cl - CLEAR BKGD
[2024-02-24 10:31] LABS: Pregnancy, Serum, hCG Quali. POSITIVE Negative
[2024-02-24 11:03] LABS: hCG Titer Quant., Serum 40 mIU/mL (1-3)
== END | disposition home or self-care (01) ==
PROVIDERS: PCP Family Medicine; Referring Provider Nurse Practitioner Family; Visit Provider Nurse Practitioner Family
DX: N91.2 Amenorrhea, unspecified (principal)
CPT/HCPCS: 36415; 84702; 84703

== ENCOUNTER → 2024-02-26 | Outpatient (CLI) | payer SELFPAY ==
[2024-02-26 08:17] LABS: hCG Titer Quant., Serum 105 mIU/mL (1-3)
[2024-02-27 07:06] LABS: PROGESTERONE 9.7 ng/mL (.)
== END | disposition home or self-care (01) ==
LOC: LAB 07:05
PROVIDERS: PCP Family Medicine; Referring Provider Nurse Practitioner Family; Visit Provider Nurse Practitioner Family
DX: N92.6 Irregular menstruation, unspecified (principal); O03.9 Complete or unspecified spontaneous abortion without complication
CPT/HCPCS: 36415; 84144; 84702

== ENCOUNTER 2024-02-28 07:36 | Outpatient (CLI) | payer SELFPAY ==
[2024-02-28 09:45] LABS: hCG Titer Quant., Serum 287 mIU/mL (1-3)
== END 2024-02-28 23:59 | disposition home or self-care (01) ==
PROVIDERS: PCP Family Medicine; Referring Provider Nurse Practitioner Women's Health; Visit Provider Nurse Practitioner Women's Health
DX: N91.2 Amenorrhea, unspecified (principal)
CPT/HCPCS: 36415; 84702

== ENCOUNTER → 2024-03-02 | Outpatient (CLI) | payer SELFPAY ==
[2024-03-02 10:50] LABS: hCG Titer Quant., Serum 1152 mIU/mL (1-3)
== END | disposition home or self-care (01) ==
LOC: PAVLAB 09:40
PROVIDERS: PCP Family Medicine; Referring Provider Nurse Practitioner Women's Health; Visit Provider Nurse Practitioner Women's Health
DX: N91.2 Amenorrhea, unspecified (principal)
CPT/HCPCS: 36415; 84702

== ENCOUNTER → 2024-03-07 | Outpatient (CLI) | payer SELFPAY ==
--- NOTE | 2024-03-07 14:23 | US_ITS ---
STUDY: FIRST TRIMESTER OBSTETRICAL ULTRASOUND REASON FOR EXAM: Female, 28 years old dating LMP: 12/21/2023 TECHNIQUE: Transvaginal TECHNICAL QUALITY: Adequate. PRIOR ULTRASOUND: None. FINDINGS: There is visualization of a single gestational sac in a normal intrauterine position. The mean sac diameter (MSD) measures 1.3 cm, indicating an estimated gestational age (EGA) of 6 weeks, 1 days. The gestational sac shape is within normal limits. There is a visualized yolk sac. The yolk sac measures 2 mm. The placenta is non-visualized. There is no demonstrated embryo ( pole). The estimated gestation age (EGA) by LMP is 11 weeks, 0 days. The estimated date of delivery (DYLAN) by LMP is 09/26/2024. The estimated gestation age (EGA) by US is 6 weeks, 1 days. The estimated date of delivery (DYLAN) by US is 10/30/2024. The uterus measures 10.5 x 6.4 x 5.6 cm. There is no demonstrated uterine fibroid. The cervix is closed. The right ovary measures 4.6 x 4.6 x 2.0 cm. There is no right ovarian cyst. There is no visualized right adnexal mass or complex lesion. The left ovary measures 3.8 x 3.9 x 2.2 cm. There is no left ovarian cyst. There is no visualized left adnexal mass or complex lesion. There is mild free fluid around the right adnexa. US/Transvaginal w/Preg US IMPRESSION: Single very early intrauterine gestation with ultrasound EGA of approximately 6 weeks 1 day. No cardiac activity or pole seen yet-viability cannot be established. Recommend short interval follow-up. Electronically Signed: Lex Delgado MD at 22:45 EDT ,
== END | disposition home or self-care (01) ==
LOC: OPUS 14:21
PROVIDERS: PCP Family Medicine; Referring Provider Obstetrics & Gynecology; Visit Provider Obstetrics & Gynecology
DX: Z78.9 Other specified health status (principal); N91.2 Amenorrhea, unspecified
CPT/HCPCS: 76817

== ENCOUNTER → 2024-03-22 | Outpatient (CLI) | payer SELFPAY ==
--- NOTE | 2024-03-22 09:02 | US_ITS ---
STUDY: FIRST TRIMESTER OBSTETRICAL ULTRASOUND REASON FOR EXAM: Female, 28 years old viability LMP: January 24, 2024. TECHNIQUE: Transvaginal TECHNICAL QUALITY: Adequate. PRIOR ULTRASOUND: Comparison is made with prior study dated March 07, 2024. FINDINGS: There is visualization of a single gestational sac in a normal intrauterine position. The mean sac diameter (MSD) measures 3.4 cm, indicating an estimated gestational age (EGA) of 8 weeks, 4 days. The gestational sac shape is within normal limits. There is a visualized yolk sac. The yolk sac measures 4 mm. The placenta is non-visualized. There is visualization of a live embryo. The crown-rump length (CRL) measures 1.3 cm, indicating an estimated gestational age (EGA) of 7 weeks, 4 days. There is demonstrated cardiac activity with a heart rate of 148 bpm. The estimated gestation age (EGA) by LMP is 8 weeks, 2 days. The estimated date of delivery (DYLAN) by LMP is April 29, 2025. The estimated gestation age (EGA) by US is 8 weeks, 1 days. The estimated date of delivery (DYLAN) by US is generally 23/05/2025. The uterus measures 12.4 cm x 7.6 cm x 6.7 cm. There is no demonstrated uterine fibroid. The cervix is closed. The right ovary measures 5 cm x 4 cm x 2.1 cm. There is a 2.1 cm x 2.3 cm x 1.9 cm right corpus luteal cyst. There is no visualized right adnexal mass or complex lesion. The left ovary measures 3.8 cm x 3.9 cm x 1.5 cm. There is no left ovarian cyst. There is no visualized left adnexal mass or complex lesion. There is no fluid in the cul de sac. US/Transvaginal w/Preg US IMPRESSION: Single live intrauterine gestation with mean gestational age of 8 weeks and 1 day. 2.1 cm x 2.3 cm x 1.9 cm right corpus luteum cyst. Electronically Signed: Azam Capellan MD at 15:27 EDT ,
== END | disposition home or self-care (01) ==
LOC: US 09:01
PROVIDERS: PCP Family Medicine; Referring Provider Obstetrics & Gynecology; Visit Provider Obstetrics & Gynecology
DX: Z34.90 Encounter for supervision of normal pregnancy, unspecified, unspecified trimester (principal); Z78.9 Other specified health status
CPT/HCPCS: 76817

== ENCOUNTER → 2024-04-14 | Outpatient (CLI) | payer SELFPAY ==
[2024-04-18 02:07] LABS: Chlamydia By Nucleic Acid AMP Negative (Negative); Gonococcus By Nucleic Acid AMP Negative (Negative)
[2024-04-18 16:34] LABS: HPV Reflexed? NOT INDICATED
== END | disposition home or self-care (01) ==
PROVIDERS: PCP Family Medicine; Referring Provider Registered Nurse; Visit Provider Registered Nurse
DX: O99.210 Obesity complicating pregnancy, unspecified trimester (principal); O09.90 Supervision of high risk pregnancy, unspecified, unspecified trimester
CPT/HCPCS: 87086; 87491; 87591; 88175; G0145

== ENCOUNTER → 2024-05-12 | Outpatient (CLI) | payer OTHER, SELFPAY ==
[2024-05-12 11:34] LABS: Absolute Lymphocyte Count 1.23 X10^3/uL (0.83-4.51); Absolute Neutrophil Count 4.4 X10^3/uL (2.0-7.7); Basophil# 0.02 X10^3/uL; Basophil% 0.3 % (0-1); Eosinophil# 0.03 X10^3/uL; Eosinophils% 0.5 % (0-5); Hematocrit 37.1 % (37-47); Hemoglobin 12.6 g/dL (12.0-15.0); Lymphocyte # 1.23 X10^3/ul (0.83-4.51); Lymphocyte % 20.9 % (19-41); Mean Corpuscular Hgb 29.4 pg (27.0-32.0); Mean Corpuscular Volume 86.7 fL (81-99); Mean Platelet Vol. 9.7 fl (6.2-12.0); Monocyte# 0.22 X10^3/uL; Monocyte% 3.7 % (0-10); NRBC Flagged by Analyzer 0 % (0-5); Neutrophil # 4.37 X10^3/uL (2.7-7.7); Neutrophil % 74.4 % (47-70); Platelet Count 250 K/mm3 (150-450); RBC Distribution Width CV 13.6 % (11.6-14.6); RBC Distribution Width SD 41.8 fl (35.1-43.9); Red Blood Count 4.28 M/mm3 (4.2-5.4); White Blood Count 5.9 K/mm3 (4.4-11.0)
[2024-05-12 12:04] LABS: Hemoglobin A1c 4.8 % (3.8-5.6)
[2024-05-12 12:27] LABS: hCG Titer Quant., Serum 36956 mIU/mL (1-3)
[2024-05-12 12:40] LABS: HIV - WCH Non-Reactive (Nonreactive); Hepatitis B Surface Antigen Non-Reactive (Nonreactive); Hepatitis C Antibody Non-Reactive (Nonreactive); Rubella IgG Non-Reactive (Nonreactive); Syphilis Antibodies Non-reactive
== END | disposition home or self-care (01) ==
PROVIDERS: Nurse Practitioner Family; PCP Family Medicine; Referring Provider Registered Nurse; Visit Provider Registered Nurse
DX: O99.210 Obesity complicating pregnancy, unspecified trimester (principal); E66.9 Obesity, unspecified; O03.9 Complete or unspecified spontaneous abortion without complication; O09.90 Supervision of high risk pregnancy, unspecified, unspecified trimester
CPT/HCPCS: 36415; 83036; 84702; 85025; 86703; 86762; 86780; 86803; 86850; 86900; 86901; 87340

== ENCOUNTER → 2024-06-13 | Outpatient (CLI) | payer SELFPAY ==
--- NOTE | 2024-06-13 12:06 | US_ITS ---
INDICATION: anatomy scan EXAMINATION: Ultrasound US OB Greater Than 14 Weeks TECHNIQUE: Transabdominal pelvic ultrasound was performed. COMPARISON: Prior study dated: 04/14/2024 LMP: 01/25/2024 Beta-hCG: Unknown. Provided EGA: 20 weeks 0 days FINDINGS: INTRAUTERINE GESTATION(s): Single. ESTIMATED GESTATIONAL AGE: 19 weeks 3 days ESTIMATED DUE DATE (DYLAN): 11/04/2024 BIOMETRIC MEASUREMENTS: HEAD CIRCUMFERENCE: 16.91 cm which corresponds to 19 weeks 4 days. BIPARIETAL DIAMETER: 4.63 cm which corresponds to 20 weeks 0 days. ABDOMINAL CIRCUMFERENCE: 14.39 cm which corresponds to 19 weeks 5 days. FEMORAL LENGTH: 2.79 cm which corresponds to 18 weeks 4 days. ANATOMY: Cerebellum: 2.0 cm Cisterna Magna: 0.5 cm Lateral Ventricle: 0.6 cm Face: Normal Spine: Normal Four-chamber Heart: Normal Diaphragm: Normal Fluid Filled Stomach: Normal Fluid Filled Bladder: Normal Three-vessel Cord: Normal Cord Insertion: Normal Kidneys: The renal pelvis is measures 0.4 cm bilaterally. Extremities: Normal HEART MOTION is 136 bpm. AMNIOTIC FLUID MAXIMUM VERTICAL POCKET): 5 cm ESTIMATED WEIGHT: 285 Percentile 15%. BIOPHYSICAL PROFILE (BPP): Not assessed. PRESENTATION: Cephalic PLACENTA: Anterior. There is no placenta previa or abruption. CERVIX: The cervix is closed. Cervical length 4.4 cm. FREE FLUID: None. US/OB Anatomy w/ Transvaginal IMPRESSION: Single live intrauterine of gestational age by ultrasound of 19 weeks 3 days. No acute abnormality. Electronically Signed: Ankit Chiang MD at 22:02 EDT ,
== END | disposition home or self-care (01) ==
PROVIDERS: PCP Family Medicine; Referring Provider Obstetrics & Gynecology; Visit Provider Obstetrics & Gynecology
DX: O09.90 Supervision of high risk pregnancy, unspecified, unspecified trimester (principal); Z3A.00 Weeks of gestation of pregnancy not specified
CPT/HCPCS: 76805; 76817

== ENCOUNTER → 2024-08-09 | Outpatient (CLI) | payer SELFPAY ==
[2024-08-09 12:18] LABS: Absolute Neutrophil Count 5.7 X10^3/uL (2.0-7.7); Basophil# 0.02 X10^3/uL; Basophil% 0.3 % (0-1); Eosinophil# 0.04 X10^3/uL; Eosinophils% 0.6 % (0-5); Hematocrit 34.7 % (37-47); Hemoglobin 11.4 g/dL (12.0-15.0); Lymphocyte % 15.2 % (19-41); Mean Corp Hgb Conc 32.9 g/dL (32-36); Mean Corpuscular Hgb 29.5 pg (27.0-32.0); Mean Corpuscular Volume 89.9 fL (81-99); Mean Platelet Vol. 10.2 fl (6.2-12.0); Monocyte# 0.37 X10^3/uL; Monocyte% 5.1 % (0-10); NRBC Flagged by Analyzer 0 % (0-5); Neutrophil # 5.72 X10^3/uL (2.7-7.7); Neutrophil % 78.7 % (47-70); Platelet Count 247 K/mm3 (150-450); RBC Distribution Width CV 13.7 % (11.6-14.6); Red Blood Count 3.86 M/mm3 (4.2-5.4); White Blood Count 7.3 K/mm3 (4.4-11.0)
[2024-08-09 12:22] LABS: Glucose Challenge Gest 1H 50g 126 mg/dL (70-140)
[2024-08-09 12:52] LABS: HIV - WCH Non-Reactive (Nonreactive); Syphilis Antibodies Non-reactive
== END | disposition home or self-care (01) ==
LOC: BWCLAB 09:45
PROVIDERS: PCP Family Medicine; Referring Provider Advanced Practice Midwife; Visit Provider Advanced Practice Midwife
DX: O09.90 Supervision of high risk pregnancy, unspecified, unspecified trimester (principal); Z3A.00 Weeks of gestation of pregnancy not specified; Z13.1 Encounter for screening for diabetes mellitus
CPT/HCPCS: 36415; 82950; 85025; 86703; 86780

== ENCOUNTER → 2024-09-07 | Outpatient (CLI) | payer SELFPAY ==
--- NOTE | 2024-09-07 08:30 | US_ITS ---
STUDY: SECOND AND THIRD TRIMESTER OBSTETRICAL ULTRASOUND - LIMITED REASON FOR EXAM: Female, 29 years old uterine size greater than dates LMP: January 25, 2024. PRIOR ULTRASOUND: Comparison is made with prior study dated June 13, 2024. TECHNIQUE: Transabdominal TECHNICAL QUALITY: Adequate. FINDINGS: There is a single intrauterine fetus. The fetus is in a breech presentation. There is demonstrated cardiac activity with a heart rate of 125 bpm. There is a normal amniotic fluid volume. The largest amniotic fluid pocket measures 7.7 cm. The amniotic fluid index (LENI) is 18.9 cm. The placenta is anterior in location and is not low lying. There are Grade 1 placental changes. BIOMETRY: BPD: 8.5 cm: 34 weeks, 2 days: 92% HC: 30.6 cm: 34 weeks, 1 days: 62% AC: 28.3 cm: 32 weeks, 2 days: 50% FL: 5.7 cm: 30 weeks, 0 days: 2% Age by LMP: 32 weeks, 2 days. DYLAN by LMP: October 31, 2024. age by prior US: 31 weeks, 5 days. DYLAN by prior US: November 04, 2024. age by current US: 32 weeks, 6 days. DYLAN by current US: October 27, 2024. Estimated weight: 1884 grams, +/- 283 grams, 31 percentile. US/OB Limited With Biometrics IMPRESSION: Single live intrauterine gestation with a mean gestational age of 31 weeks and 5 days. The measurements obtained today fall within normal expected range. Electronically Signed: Azam Capellan MD at 14:28 EST ,
== END | disposition home or self-care (01) ==
LOC: US 08:30
PROVIDERS: PCP Family Medicine; Referring Provider Advanced Practice Midwife; Visit Provider Advanced Practice Midwife
DX: O26.849 Uterine size-date discrepancy, unspecified trimester (principal); Z3A.00 Weeks of gestation of pregnancy not specified
CPT/HCPCS: 76816

== ENCOUNTER 2024-10-12 14:04 | Outpatient (CLI) | payer SELFPAY ==
--- NOTE | 2024-10-12 14:33 | US_ITS ---
STUDY: SECOND AND THIRD TRIMESTER OBSTETRICAL ULTRASOUND REASON FOR EXAM: Female, 29 years old leni LMP: January 25, 2024 TECHNIQUE: Transabdominal TECHNICAL QUALITY: Adequate. PRIOR ULTRASOUND: September 07, 2024 FINDINGS: There is a single intrauterine fetus. The fetus is in a cephalic presentation. There is demonstrated cardiac activity with a heart rate of 124 bpm. There is a normal amniotic fluid volume. The largest amniotic fluid pocket measures 8.3 cm. The amniotic fluid index (LENI) is 24.9 cm. The placenta is anterior There are Grade 2 placental changes. The cervix is not measured.. BIOMETRY: BPD: 9.2 cm: 37 weeks, 3 days HC: 33 cm: 37 weeks, 5 days AC: 34.4 cm: 38 weeks, 2 days FL: 6.5 cm: 33 weeks, 4 days CI: 78% FL/BPD: 71 FL/HC: 20 FL/AC: 19 HC/AC: 1.0 age by current US: 37 weeks, 0 days. DYLAN by current US: November 02, 2024. Estimated weight: 3113 grams, +/- 467 grams, 53 %. Age by LMP: 37 weeks, 2 days. DYLAN by LMP: October 31, 2024. IMPRESSION: 37 week intrauterine . Borderline polyhydramnios. Electronically Signed: Tapan Cabezas MD at 20:28 EST , STUDY: OBSTETRICAL ULTRASOUND - BIOPHYSICAL PROFILE REASON FOR EXAM: Female, 29 years old leni LMP: January 25, 2024 PRIOR ULTRASOUND: None. TECHNIQUE: September 07, 2024 TECHNICAL QUALITY: Adequate. FINDINGS: There is a single intrauterine fetus. The fetus is in a cephalic presentation. There is demonstrated cardiac activity with a heart rate of 124 bpm. Borderline polyhydramnios. The largest amniotic fluid pocket measures 8.3 cm. The amniotic fluid index (LENI) is 24.9 cm. The placenta is anterior There are Grade 2 placental changes. Age by LMP: 37 weeks, 2 days. DYLAN by LMP: October 31, 2024. age by prior US: 3 7 weeks, 6 days. DYLAN by prior US: October 27, 2024. age by current US: 37 weeks, 0 days. DYLAN by current US: November 02, 2024. BIOPHYSICAL PROFILE: Breathing Movements (FBM): 2 Gross Body Movements (GBM): 2 Tone (FT): 2 Amniotic Fluid Volume (AFV): 2 TOTAL SCORE: US/OB Limited With Biometrics IMPRESSION: Normal biophysical profile of 05/11. Electronically Signed: Tapan Cabezas MD at 20:32 EST ,
[2024-10-12 15:01] VITALS: PULSE 98; O2SAT 99
[2024-10-12 15:02] VITALS: BP 121/76; PULSE 95; RESP 16; TEMP 36.4
[2024-10-12 15:07] VITALS: BMI 36.3
[2024-10-12 15:12] VITALS: BP 128/83; PULSE 93
[2024-10-12 15:26] LABS: Hematocrit 35.3 % (37-47); Hemoglobin 11.6 g/dL (12.0-15.0); Mean Corp Hgb Conc 32.9 g/dL (32-36); Mean Corpuscular Hgb 28.8 pg (27.0-32.0); Mean Corpuscular Volume 87.6 fL (81-99); Mean Platelet Vol. 9.8 fl (6.2-12.0); Platelet Count 209 K/mm3 (150-450); RBC Distribution Width CV 13.8 % (11.6-14.6); RBC Distribution Width SD 44.1 fl (35.1-43.9); Red Blood Count 4.03 M/mm3 (4.2-5.4); White Blood Count 8.5 K/mm3 (4.4-11.0)
[2024-10-12 15:28] VITALS: BP 122/82; PULSE 94
[2024-10-12 15:43] VITALS: BP 125/79; PULSE 86
[2024-10-12 15:56] VITALS: BP 126/75; PULSE 88
[2024-10-12 16:21] LABS: AST(SGOT) 22 U/L (15-37); Alanine Aminotransfer ALT/SGPT 27 U/L (13-56); EST Glomerular Filtration Rate 158 mL/min (>60); Est Glom Filt Rate - Afr Amer 191 mL/min (>60); Uric Acid 3.8 mg/dL (2.6-6.0)
--- NOTE | 2024-10-12 17:31 | OB.TRI.HP_ITS ---
HPI - General HPI Narrative ATA BURGOS, is a 29 y/o @ 37 weeks who presents to L&D to rule out pre- eclampsia due to lower extremity edema and bp of 130's/80's in the office. She denies headache or visual changes. Maternal Data Information DYLAN Calculator Estimated Delivery Date Method Current WG Current Estimate 10/31/24 Ultrasound #2 37w 2d PFSH PFS Medical History Rubella non-immune status, antepartum Spontaneous miscarriage Active labor 34 weeks gestation of Anemia affecting Influenza vaccination declined Supervision of normal first Spotting Spotting in early No significant past medical history Home Medications ?Medication ?Instructions ?Recorded ?Last Taken ?Type multivit-min no.71-iron fum 28 1 cap PO DAILY 04/07/24 10/11/24 21:00 History mg-folate no.1 1 mg-dha 300 mg 1 cap capsule (PNV-[place]) calcium 150 mg tablet mg PO 10/12/24 10/11/24 21:00 History magnesium glycinate 100 mg (as 100 mg PO DAILY 10/12/24 10/11/24 21:00 History glycinate) tablet (Mag Glycinate) 100 mg Allergy/AdvReac Type Severity Reaction Status Date / Time No Known Allergies Allergy Verified 10/12/24 15:03 Family History Father Hypertension Grandmother Cancer Heart disease Surgical History No significant past surgical history Social History adopted: No household members: spouse and children housing: house number of children: 1 current occupational status: unemployed 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 current occupational exposures/hazards: No pets and animals: No history of recent travel: Yes ([place]) out of state: Yes out of country: Yes sexually active: Yes Smoking Status: Never smoker second hand exposure: Yes alcohol intake: never substance use type: does not use well-balanced diet: daily or most days caffeine: No eating out: rarely or never during the past year weight has: remained stable what type of physical activity do you participate in: none cornelius/sikhism: Quaker seatbelt use: sometimes do you feel safe at home: Yes additional social history: Ambrosio- siding and reroofing History 3 Elective abortions Hx Para 1 Spontaneous abortions 1 Hx # Term Pregnancies 1 Ectopic pregnancies Hx # Pregnancies Multiple births # of living children 1 Past Pregnancies Del. Date Name GA/Weeks Outcome Route Bth Weight Gen Labor Lgth Anesthesia Del Locatn Provider FOB 10/02/20 Kena 40 live - full term 7lbs 1oz Female epidural [facility] Delivery Date: 10/02/20 Last Updated by: Emilie Lake forceps assisted Visit Details Expected Delivery Route/Plan Labor Preferences- CB/BF classes: [] labor support person: [] labor intervention preferences: [] pain management options preferred: [] cut cord/dad catch: [] : [] PP control planned: [] discussed possible routes of delivery and associated risks: [] special requests: [] Plans Covid status: [] Flu vaccine: declined Tdap vaccine: declined Rhogam: na LARC form signed: declined movement and labor precautions reviewed. Problem list reviewed and updated with the most current plan of care details and appropriate orders placed. Relevant counseling for the gestational age provided. Continue routine care and follow up unless otherwise noted in visit notes/problem list details OB Flowsheet Initial Weight: 175 lb Date -?-?-?-?-?-?-?-?-?-?-?-?- EGA Weight BP Urine Prot -?-?-?-?-?-?-?-?-?-?-?-?- Glucose FHR FuHt Pres Dilation -?-?-?-?-?-?-?-?-?-?-?-?- Effaced St Visit Note 04/14/24 -?-?-?-?-?-?-?-?-?-?-?-?- 11w 3d 175 lb (+0 oz) 110/74 -?-?-?-?-?-?-?-?-?-?-?-?- 156 -?-?-?-?-?-?-?-?-?-?-?-?- LC- CRL 4.5cm co n with LMP. declines genetics/carrier screening. hbga1c for obesity added to routine ob labs. 05/12/24 -?-?-?-?-?-?-?-?-?-?-?-?- 15w 3d 173 lb (-2 lb) 107/74 -?-?-?-?-?-?-?-?-?-?-?-?- 145 -?-?-?-?-?-?-?-?-?-?-?-?- SM no vb crampin g needs nob labs drawn 06/13/24 -?-?-?-?-?-?-?-?-?-?-?-?- 20w 0d 175 lb 8 oz (+8 oz) 106/72 Negative -?-?-?-?-?-?-?-?-?-?-?-?- Negative 140 20 -?-?-?-?-?-?-?-?-?-?-?-?- KW- no vb/ck ng. anatomy US today. PRR 07/12/24 -?-?-?-?-?-?-?-?-?-?-?-?- 24w 1d 180 lb (+5 lb) 122/81 Negative -?-?-?-?-?-?-?-?-?-?-?-?- Negative 130 24 -?-?-?-?-?-?-?-?-?-?-?-?- kw-no vb/crampin g. good fm. no concerns today. 28 week labs discussed. 08/09/24 -?-?-?-?-?-?-?-?-?-?-?-?- 28w 1d 184 lb 6 oz (+9 lb 6 oz) 106/73 Negative -?-?-?-?-?-?-?-?-?-?-?-?- Negative 140 31 -?-?-?-?-?-?-?-?-?-?-?-?- JV- no lof, vagi nal bleeding, or dec fm. 3rd trimester labs done today. declines tdap, rsv, and flu shots. 08/23/24 -?-?-?-?-?-?-?--?-?-?-?-?- 30w 1d 189 lb 8 oz (+14 lb 8 oz) 132/83 Negative -?-?-?-?-?-?-?-?-?-?-?-?- Negative 135 34 -?-?-?-?-?-?-?-?-?-?-?-?- kw- no vb/lof/ct x. good fm. growth US ordered. 09/07/24 -?-?-?-?-?-?-?-?-?-?-?-?- 32w 2d 192 lb (+17 lb) 97/71 Negative -?-?-?-?-?-?-?-?-?-?-?-?- Negative 121 33 -?-?-?-?-?-?-?-?-?-?-?-?- JV- growth is 33 1st% (50Th for AC) and breech today. plan to rpt bedside scan at 36 weeks 09/22/24 -?-?-?-?-?-?-?-?-?-?-?-?- 34w 3d 195 lb 6 oz (+20 lb 6 oz) 112/78 Negative -?-?-?-?-?-?-?-?-?-?-?-?- Negative 140 34 -?-?-?-?-?-?-?-?-?-?-?-?- SM- no vb lof go od fm no reugalr ctx 10/12/24 -?-?-?-?-?-?-?-?-?-?-?-?- 37w 2d 202 lb 4 oz (+27 lb 4 oz) 121/78 Negative -?-?-?-?-?-?-?-?-?-?-?-?- Negative 120 43 1 -?-?-?-?-?-?-?-?-?-?-?-?- 60 -3 KW- no vb/ lof/ctx. good fm. ZHOU for last 2 days. BLE swelling pre e labs today and GBS. some decreased movement. to WP for monitoring and labs ROS Constitutional Constitutional: Reports systems reviewed and no addt'l complaints, except as documented Gastrointestinal Gastrointestinal: Denies bloating, constipation, cramping, diarrhea, nausea or vomiting Genitourinary Genitourinary: Reports other Details: Denies vaginal odor, vaginal bleeding, or vaginal discharge ; Denies difficulty urinating or flank pain NST FHR Rate Baby A Baseline: 115 Variability:: Moderate Accelerations:: 15 x 15 Decelerations:: None NST Reactive:: Yes FHR Category:: Category I Assessment & Plan (1) Polyhydramnios affecting : (2) Uterine size date discrepancy: COMMENT: S>D (3) Rubella non-immune status, antepartum: COMMENT: recommend avoidance, plan MMR . (4) Obesity (BMI 30.0-34.9): COMMENT: HGA1C normal (5) Supervision of high-risk : COMMENT: RENZO, , DYLAN 10/31/24, TERRELL Escudero, Ambrosio (6) : QUALIFIERS: Weeks of gestation: 34 weeks Qualified Code(s): Z3A.34 - 34 weeks gestation of COMMENT: discussed genetic & carrier testing, declines NTD screen. nl anatomy (7) Edema: PLAN: Plan PIH labs are all normal BPP showed evidence of fluid level of 24 but 8/8 ok to dc to home. Charges/Coding Multi Select Codes Visit Charges Office Visit/Consults: 03760 OV L3 Est 20min Urinary/Genital Urinary/Genital CPT Codes: 20890-73 non-stress test Interp
== END 2024-10-12 16:55 | disposition home or self-care (01) ==
LOC: BWCLAB 14:06 → WPOUT 14:28 → WP 14:29
PROVIDERS: Advanced Practice Midwife; PCP Family Medicine; Referring Provider Obstetrics & Gynecology; Visit Provider Obstetrics & Gynecology
DX: O99.891 Other specified diseases and conditions complicating pregnancy (principal); R60.0 Localized edema; Z3A.37 37 weeks gestation of pregnancy
CPT/HCPCS: 36415; 59025; 59050; 76816; 76819; 82565; 84450; 84460; 84550; 85027; 99221; G0378

== ENCOUNTER → 2024-10-12 | Outpatient (CLI) | payer SELFPAY ==
[2024-10-12 15:03] LABS: Protein, Urine (Random) 8.8 mg/dL (<11.9); Protein:Creat Ratio 247 mg/g CRE (0-200)
== END | disposition home or self-care (01) ==
PROVIDERS: PCP Family Medicine; Visit Provider Advanced Practice Midwife
DX: O09.90 Supervision of high risk pregnancy, unspecified, unspecified trimester (principal); Z3A.00 Weeks of gestation of pregnancy not specified; R60.9 Edema, unspecified
CPT/HCPCS: 82570; 84156; 87081

== ENCOUNTER 2024-10-30 07:09 | Inpatient (IN) | payer SELFPAY ==
[2024-10-30] VITALS (99 sets, daily range): BP systolic 106–134; BP diastolic 53–83; PULSE 82–121; RESP 16–18; TEMP 36.1–37; O2SAT 89–100; BMI 35.9
--- NOTE | 2024-10-30 07:16 | HP.PCM.OB_ITS ---
HPI - General General Date of Admission: 10/30/24 HPI Narrative ATA BURGOS, is a 29 F who presents for IOL secondary to maternal discomfort. she did previously have polyhydramnios recently but fluid level did resolve. no v blof good fm no regular ctx Maternal Data Information DYLAN Calculator Estimated Delivery Date Method Current WG Current Estimate 10/31/24 Ultrasound #2 39w 6d PFSH PFSH Medical History Rubella non-immune status, antepartum Spontaneous miscarriage Active labor 34 weeks gestation of Anemia affecting Influenza vaccination declined Supervision of normal first Spotting Spotting in early No significant past medical history Home Medications ?Medication ?Instructions ?Recorded ?Last Taken ?Type multivit-min no.71-iron fum 28 1 cap PO DAILY 04/07/24 10/29/24 History mg-folate no.1 1 mg-dha 300 mg capsule (PNV-[place]) calcium 150 mg tablet mg PO 10/12/24 10/29/24 History Allergy/AdvReac Type Severity Reaction Status Date / Time No Known Allergies Allergy Verified 10/30/24 07:55 Family History Father Hypertension Grandmother Cancer Heart disease Surgical History No significant past surgical history Social History adopted: No household members: spouse and children housing: house number of children: 1 current occupational status: unemployed 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 current occupational exposures/hazards: No pets and animals: No history of recent travel: Yes ([place]) out of state: Yes out of country: Yes sexually active: Yes Smoking Status: Never smoker second hand exposure: Yes alcohol intake: never substance use type: does not use well-balanced diet: daily or most days caffeine: No eating out: rarely or never during the past year weight has: remained stable what type of physical activity do you participate in: none cornelius/alevism: Tenriism seatbelt use: sometimes do you feel safe at home: Yes additional social history: Ambrosio- siding and reroofing History 3 Elective abortions Hx Para 1 Spontaneous abortions 1 Hx # Term Pregnancies 1 Ectopic pregnancies Hx # Pregnancies Multiple births # of living children 1 Past Pregnancies Del. Date Name GA/Weeks Outcome Route Bth Weight Gen Labor Lgth Anesthesia Del Glenn Provider FOB 10/02/20 Kena 40 live - full term 7lbs 1oz Female epidural [facility] Delivery Date: 10/02/20 Last Updated by: Emilie Lake forceps assisted Visit Details Expected Delivery Route/Plan Labor Preferences- CB/BF classes: [] labor support person: [] labor intervention preferences: [] pain management options preferred: [] cut cord/dad catch: [] : [] PP control planned: [] discussed possible routes of delivery and associated risks: [] special requests: [] Plans Covid status: [] Flu vaccine: declined Tdap vaccine: declined Rhogam: na LARC form signed: declined movement and labor precautions reviewed. Problem list reviewed and updated with the most current plan of care details and appropriate orders placed. Relevant counseling for the gestational age provided. Continue routine care and follow up unless otherwise noted in visit notes/problem list details OB Flowsheet Initial Weight: 175 lb Date -?-?-?-?-?-?-?-?-?-?-?-?- EGA Weight BP Urine Prot -?-?-?-?-?-?-?-?-?-?-?-?- Glucose FHR FuHt Pres Dilation -?-?-?-?-?-?-?-?-?-?-?-?- Effaced St Visit Note 04/14/24 -?-?-?-?-?-?-?-?-?-?-?-?- 11w 3d 175 lb (+0 oz) 110/74 -?-?-?-?-?-?-?-?-?-?-?-?- 156 -?-?-?-?-?-?-?-?-?-?-?-?- LC- CRL 4.5cm co n with LMP. declines genetics/carrier screening. hbga1c for obesity added to routine ob labs. 05/12/24 -?-?-?-?-?-?-?-?-?-?-?-?- 15w 3d 173 lb (-2 lb) 107/74 -?-?-?-?-?-?-?-?-?-?-?-?- 145 -?-?-?-?-?-?-?-?-?-?-?-?- SM no vb edisonmpin g needs nob labs drawn 06/13/24 -?-?-?-?-?-?-?--?-?-?-?-?- 20w 0d 175 lb 8 oz (+8 oz) 106/72 Negative -?-?-?-?-?-?-?-?-?-?-?-?- Negative 140 20 -?-?-?-?-?-?-?-?-?-?-?-?- KW- no vb/ck ng. anatomy US today. PRR 07/12/24 -?-?-?-?-?-?-?-?-?-?-?-?- 24w 1d 180 lb (+5 lb) 122/81 Negative -?-?-?-?-?-?-?-?--?-?-?-?- Negative 130 24 -?-?-?-?-?-?-?-?-?-?-?-?- kw-no vb/noelin g. good fm. no concerns today. 28 week labs discussed. 08/09/24 -?-?-?-?-?-?--?-?-?-?-?-?- 28w 1d 184 lb 6 oz (+9 lb 6 oz) 106/73 Negative -?-?-?-?-?-?-?-?-?-?-?-?- Negative 140 31 -?-?-?-?-?-?-?-?-?-?-?-?- JV- no lof, vagi nal bleeding, or dec fm. 3rd trimester labs done today. declines tdap, rsv, and flu shots. 08/23/24 -?-?-?-?-?-?-?-?-?-?-?-?- 30w 1d 189 lb 8 oz (+14 lb 8 oz) 132/83 Negative -?-?-?-?-?-?-?-?-?-?-?-?- Negative 135 34 -?-?-?-?-?-?-?-?-?-?-?-?- kw- no vb/lof/ct x. good fm. growth US ordered. 09/07/24 -?-?-?-?-?-?-?-?-?-?-?-?- 32w 2d 192 lb (+17 lb) 97/71 Negative -?-?-?-?-?-?-?-?-?-?-?-?- Negative 121 33 -?-?-?-?-?-?-?-?-?-?-?-?- JV- growth is 33 1st% (50Th for AC) and breech today. plan to rpt bedside scan at 36 weeks 09/22/24 -?-?-?-?-?-?-?-?-?-?-?-?- 34w 3d 195 lb 6 oz (+20 lb 6 oz) 112/78 Negative -?-?-?-?-?-?-?-?-?-?-?-?- Negative 140 34 -?-?-?-?-?-?-?-?-?-?-?-?- SM- no vb lof go od fm no reugalr ctx 10/12/24 -?-?-?-?-?-?-?-?-?-?-?-?- 37w 2d 202 lb 4 oz (+27 lb 4 oz) 121/78 Negative -?-?-?--?-?-?-?-?-?-?-?-?- Negative 120 43 1 -?-?-?-?-?-?-?-?-?-?-?-?- 60 -3 KW- no vb/ lof/ctx. good fm. ZHOU for last 2 days. BLE swelling pre e labs today and GBS. some decreased movement. to for monitoring and labs 10/16/24 -?-?-?-?-?-?-?-?-?-?-?-?- 37w 6d 201 lb (+26 lb) 126/82 Negative -?-?-?-?--?-?-?-?-?-?-?-?- Negative 130 43 Cephalic 1 -?-?-?-?-?-?-?-?-?-?-?-?- 70 -2 KW- no vb/ lof/reg ctx. good fm. no concerns today 10/23/24 -?-?-?-?-?-?-?--?-?-?-?-?- 38w 6d 202 lb 6 oz (+27 lb 6 oz) 128/88 Negative -?-?-?-?-?-?-?-?-?-?-?-?- Negative 130 Cephalic 1 -?-?-?-?-?-?-?-?--?-?-?-?- 70 -3 JV- head b allotable today. leni is 16.5. patient given option for elective IOL though since feels so miserable and wants to call us back. NST FHR Rate Baby A Baseline: 130 Variability:: Moderate Accelerations:: 15 x 15 Decelerations:: None NST Reactive:: Yes FHR Category:: Category I Uterine Activity:: irregular ROS Constitutional Constitutional: Reports systems reviewed and no addt'l complaints, except as documented Eyes Eyes: Denies change in vision ENT HEENT: Reports systems reviewed and no addt'l complaints, except as documented; Denies headache(s) Cardiovascular Cardiovascular: Reports systems reviewed and no addt'l complaints, except as documented; Denies chest pain or dyspnea Respiratory/Chest Respiratory/Chest: Reports systems reviewed and no addt'l complaints, except as documented Gastrointestinal Gastrointestinal: Reports systems reviewed and no addt'l complaints, except as documented; Denies abdominal pain Genitourinary Genitourinary: Reports systems reviewed and no addt'l complaints, except as documented, contractions Details: present (irregular) and movement Details: present; Denies dysuria or genital lesions Musculoskeletal Musculoskeletal: Reports systems reviewed and no addt'l complaints, except as documented Neurologic Neurologic: Reports systems reviewed and no addt'l complaints, except as documented Endocrine Endocrinology: Reports systems reviewed and no addt'l complaints, except as documented Physical Exam Const alert, oriented x3, no apparent distress and healthy appearing HEENT normocephalic and moist oral mucous membranes Head and Scalp: atraumatic Neck full ROM, no lymphadenopathy, supple and thyroid normal General: trachea midline Lymph Lymphatic: no lymphadenopathy noted Chest inspection of chest normal Resp normal respiratory effort Cardio regular rate GI soft to palpation and non-tender GI Narrative: gravid Inspection: gravid external exam normal Manual OB Exam: estimated gestational size appropriate, presentation cephalic, dilated, effaced and station Extremity normal to inspection General Extremity: Negative for edema Skin no rashes or lesions noted Neuro no focal motor deficits and deep tendon reflexes 2+ bilaterally Motor Exam: strength 5/5 throughout and clonus absent Psych mental status grossly normal Labs Labs Labs: Blood Type A POSITIVE Antibody Screen NEGATIVE Hct 35.4 % (37-47) L Hgb 11.6 g/dL (12.0-15.0) L Obstetrics Ultrasound Syphilis Total Ab Non-reactive Rubella IgG Antibody Non-Reactive (Nonreactive) Hep Bs Antigen Non-Reactive (Nonreactive) Hepatitis C Antibody Non-Reactive (Nonreactive) Chlamydia DNA (DAMARIS) Negative (Negative) N.gonorrhoeae DNA (DAMARIS) Negative (Negative) HIV 1&2 Antibody Non-Reactive (Nonreactive) Glucose 1 Hr 50 gm 126 mg/dL (70-140) Rhogam given: No Assessment & Plan (1) Polyhydramnios affecting : COMMENT: 24 LENI, resolved. LENI 16.5 on 10/23/24. (2) Rubella non-immune status, antepartum: COMMENT: recommend avoidance, plan MMR . (3) Obesity (BMI 30.0-34.9): COMMENT: HGA1C normal (4) Supervision of high-risk : COMMENT: PRR, , DYLAN 10/31/24, TERRELL Escudero, Ambrosio (5) : QUALIFIERS: Weeks of gestation: 38 weeks Qualified Code(s): Z3A.38 - 38 weeks gestation of COMMENT: GBS neg, discussed genetic & carrier testing, declines NTD screen. nl anatomy (6) Encounter for induction of labor: PLAN: Plan Patient presents IOL, plan management for with pitocin/AROM. fb Pain management: plans epidural. GBS negative. Management of any complications: none I have reviewed the [facility] and made any clinically relevant updates.
[2024-10-30] MEDS: Lactated Ringers 1,000 ML 50 ML IV (07:35)
[2024-10-30 08:03] LABS: Absolute Lymphocyte Count 1.53 X10^3/uL (0.83-4.51); Absolute Neutrophil Count 6.2 X10^3/uL (2.0-7.7); Basophil# 0.01 X10^3/uL; Basophil% 0.1 % (0-1); Eosinophil# 0.06 X10^3/uL; Eosinophils% 0.7 % (0-5); Hematocrit 35.4 % (37-47); Hemoglobin 11.6 g/dL (12.0-15.0); Lymphocyte # 1.53 X10^3/ul (0.83-4.51); Lymphocyte % 17.9 % (19-41); Mean Corp Hgb Conc 32.8 g/dL (32-36); Mean Corpuscular Hgb 28.4 pg (27.0-32.0); Mean Corpuscular Volume 86.6 fL (81-99); Mean Platelet Vol. 10.4 fl (6.2-12.0); Monocyte# 0.67 X10^3/uL; Monocyte% 7.9 % (0-10); NRBC Flagged by Analyzer 0 % (0-5); Neutrophil # 6.22 X10^3/uL (2.7-7.7); Neutrophil % 72.9 % (47-70); Platelet Count 232 K/mm3 (150-450); RBC Distribution Width CV 14.2 % (11.6-14.6); RBC Distribution Width SD 44.5 fl (35.1-43.9); Red Blood Count 4.09 M/mm3 (4.2-5.4); White Blood Count 8.5 K/mm3 (4.4-11.0)
[2024-10-30] MEDS: Oxytocin 15 Units/NS 250ml 15 UNITS/250 ML IV.SOLN 2 UNITS IV (08:20)
[2024-10-30 09:16] LABS: Syphilis Antibodies Non-reactive
[2024-10-30] MEDS: Lactated Ringers 1,000 ML 999 ML IV ×2 (13:22→22:05)
[2024-10-30] MEDS: fentaNYL-bupivacaine (epidural) 100 ML BAG EPIDURAL (13:58)
[2024-10-30] MEDS: Oxytocin 15 Units/NS 250ml 15 UNITS/250 ML IV.SOLN 83 UNITS IV (16:30)
--- NOTE | 2024-10-30 17:32 | EX.PCM.OBRPT ---
Assessment & Plan (1) Encounter for induction of labor: (2) Rubella non-immune status, antepartum: COMMENT: recommend avoidance, plan MMR . (3) Obesity (BMI 30.0-34.9): COMMENT: HGA1C normal (4) Supervision of high-risk : COMMENT: Obinna MULLER, DYLAN 10/31/24, TERRELL Escudero, Ambrosio (5) : QUALIFIERS: Weeks of gestation: 38 weeks Qualified Code(s): Z3A.38 - 38 weeks gestation of COMMENT: GBS neg, discussed genetic & carrier testing, declines NTD screen. nl anatomy (6) Vaginal delivery: COMMENT: SM IOL 40 boy Maternal Data Information DYLAN Calculator Estimated Delivery Date Method Current WG Current Estimate 10/31/24 Ultrasound #2 39w 6d
--- NOTE | 2024-10-30 17:33 | EX.PCM.OBVAG ---
Assessment & Plan (1) Vaginal delivery: COMMENT: SM IOL 40 boy (2) Encounter for induction of labor: (3) Supervision of high-risk : COMMENT: PRR, , DYLAN 10/31/24, TERRELL Kena, Ambrosio (4) Obesity (BMI 30.0-34.9): COMMENT: HGA1C normal (5) Rubella non-immune status, antepartum: COMMENT: recommend avoidance, plan MMR . Maternal Data Information DYLAN Calculator Estimated Delivery Date Method Current WG Current Estimate 10/31/24 Ultrasound #2 39w 6d Vaginal Delivery Maternal Presentation Maternal Presentation: see assessment and plan Vaginal Delivery Information Procedure Performed: Spontaneous Vaginal Delivery Surgeon/Practitioner: Cele Mcknight Date of Procedure: 10/30/24 Pre-Procedure Diagnosis: see assessment and plan Post-Procedure Diagnosis: same Type of anesthesia: Epidural Estimated Blood Loss: 100 Findings Description of procedure: Patient began pushing and delivered the head in the GAL presentation. The head was delivered atraumatically . The anterior and posterior shoulders delivered without complication followed by the rest of the and the was placed on the maternal abdomen, ankle cord was noted and unwrapped. Delayed cord clamping was employed for approximately 60 seconds. Cord was clamped and cut and gentle traction was applied to the cord and the placenta delivered spontaneously immediately following it was noted to be intact with three-vessel cord. The perineum and vagina were inspected and was noted to have a first -degree laceration that was repaired in the usual fashion with 3-0 vicryl rapide . EBL was 100 cc. Patient and infant tolerated delivery well. 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
--- NOTE | 2024-10-30 17:34 | DCINST_ITS ---
Discharge Instructions Diet Discharge Diet: No restrictions DC O2, CPAP, BIPAP needs Home O2 Discharge instructions: No Dressing / Incision Discharge Activity: Return to Normal Activity, May Not Drive (while taking narcotic pain medications.) and May Shower May resume sexual activity in: 4-6 weeks Dressing / Incision Call your doctor if your incision/area has: Continuous Slow Oozing, Sudden Increased Bleeding, Increased Pain/ Swelling, Increased Redness and Foul Smelling Discharge Follow Up Care Please Follow Up With: Cele Mcknight MD When: Call [phone] to make an appointment with your doctor in 6 weeks. If you had elevated blood pressure or 4th degree laceration, you will need to be seen in 2 weeks. Test Results: Test results from this visit will be discussed in further detail at your follow- up appointment, if applicable. Discharge Plan Admission Admit Date/Time: 10/30/24 07:09 Attending Provider: Cele Mcknight Primary Care Provider: Luis Prather Discharge Orders/Prescriptions Prescriptions: No Action PNV-[place] 28-1-300 mg capsule 1 cap PO DAILY calcium 150 mg tablet PO Referrals / Follow Up: Luis Prather DO [Primary Care Provider] - Disposition Disposition (needs filled in before D/C Order can be placed): Home, Self Care
[2024-10-30] MEDS: Acetaminophen 500 MG Tablet 1000 MG PO (21:32)
[2024-10-30 22:17] LABS: Absolute Lymphocyte Count 1.06 X10^3/uL (0.83-4.51); Absolute Neutrophil Count 12.4 X10^3/uL (2.0-7.7); Basophil# 0.01 X10^3/uL; Basophil% 0.1 % (0-1); Eosinophil# 0.01 X10^3/uL; Eosinophils% 0.1 % (0-5); Hematocrit 33.3 % (37-47); Hemoglobin 11.1 g/dL (12.0-15.0); Lymphocyte # 1.06 X10^3/ul (0.83-4.51); Lymphocyte % 7.5 % (19-41); Mean Corp Hgb Conc 33.3 g/dL (32-36); Mean Corpuscular Hgb 28.8 pg (27.0-32.0); Mean Corpuscular Volume 86.3 fL (81-99); Mean Platelet Vol. 9.9 fl (6.2-12.0); Monocyte# 0.62 X10^3/uL; Monocyte% 4.4 % (0-10); NRBC Flagged by Analyzer 0 % (0-5); Neutrophil # 12.35 X10^3/uL (2.7-7.7); Neutrophil % 87.5 % (47-70); Platelet Count 213 K/mm3 (150-450); RBC Distribution Width CV 14.1 % (11.6-14.6); RBC Distribution Width SD 43.5 fl (35.1-43.9); Red Blood Count 3.86 M/mm3 (4.2-5.4); White Blood Count 14.1 K/mm3 (4.4-11.0)
[2024-10-31] VITALS (9 sets, daily range): BP systolic 110–119; BP diastolic 55–75; PULSE 82–99; RESP 16–17; TEMP 36.1–36.6; O2SAT 98–99
[2024-10-31] MEDS: Acetaminophen 500 MG Tablet 1000 MG PO (09:03)
--- NOTE | 2024-10-31 09:27 | PN.OBGYN_ITS ---
Subjective Subjective Patient doing well without complaints. Tolerating PO. Ambulating and voiding without difficulty. feeding well. Denies chest pain, shortness of breath, calf pain/swelling, fevers, chills, lightheadedness. Objective Data Objective Data Vital Signs: Vital Signs Temp Pulse Resp BP Pulse Ox O2 Del Method 97.1 F L 97 16 115/61 98 Room Air 10/31/24 09:06 10/31/24 09:06 10/31/24 09:06 10/31/24 09:06 10/31/24 04:07 10/31/24 09:06 Oxygen Delivery Method Room Air Weight: 203 lb Body Mass Index (BMI) 35.9 Intake & Output: Intake and Output for Last 24 Hours 10/29/24 10/30/24 10/31/24 23:59 23:59 23:59 Intake Total 3146.65 / 3146.65 Output Total 700 / 700 Balance 2446.65 / 2446.65 Lab / Micro Data 10/30/24 22:05 Labs: Laboratory Results - last 24 hr 10/30/24 07:35: Blood Type A POSITIVE, Antibody Screen NEGATIVE 10/30/24 22:05: WBC 14.1 H, RBC 3.86 L, Hgb 11.1 L, Hct 33.3 L, MCV 86.3, MCH 28.8, MCHC 33.3, RDW Std Deviation 43.5, RDW Coeff of Ally 14.1, Plt Count 213, MPV 9.9, Immature Gran % (Auto) 0.400, Neut % (Auto) 87.5 H, Lymph % (Auto) 7.5 L, [place] % (Auto) 4.4, Eos % (Auto) 0.1, Baso % (Auto) 0.1, Absolute Neuts (auto) 12.4 H, Absolute Lymphs (auto) 1.06, Nucleated RBC % 0 ROS Constitutional Constitutional: Reports systems reviewed and no addt'l complaints, except as documented Cardiovascular Cardiovascular: Reports systems reviewed and no addt'l complaints, except as documented Respiratory/Chest Respiratory/Chest: Reports systems reviewed and no addt'l complaints, except as documented Gastrointestinal Gastrointestinal: Reports systems reviewed and no addt'l complaints, except as documented Physical Exam Const alert, oriented x3 and no apparent distress HEENT Head and Scalp: atraumatic Resp normal respiratory effort GI soft to palpation and non-tender Bimanual Exam - Vag & Uterus: uterus non-tender Uterus Palpation: uterus fundus firm (below Umbilicus) Assessment & Plan (1) Vaginal delivery: COMMENT: SM IOL 40 boy PLAN: Plan s/p PPD # 1 1. routine post delivery care 2. breast feeding- support given 3. rh positive 4. rubella non immune
== END 2024-10-31 21:20 | disposition home or self-care (01) | DRG 807 ==
PROVIDERS: Admitting Provider Obstetrics & Gynecology; PCP Family Medicine; Referring Provider Obstetrics & Gynecology; Visit Provider Obstetrics & Gynecology
DX: O70.0 First degree perineal laceration during delivery (principal); Z37.0 Single live birth; O40.3XX0 Polyhydramnios, third trimester, not applicable or unspecified; N96 Recurrent pregnancy loss; O99.214 Obesity complicating childbirth; Z3A.38 38 weeks gestation of pregnancy; O99.893 Other specified diseases and conditions complicating puerperium
CPT/HCPCS: 59025; 59050; 85025; 86780; 86850; 86900; 86901; 99221; G0378

== ENCOUNTER 2024-11-08 13:17 | Emergency (ER) | payer SELFPAY ==
[2024-11-08 13:18] VITALS: BP 123/88; PULSE 83; RESP 16; TEMP 36.7; O2SAT 100; BMI 33.2
--- NOTE | 2024-11-08 13:59 | US_ITS ---
EXAM: US Pelvis Transabdominal and Transvaginal, Complete CLINICAL INDICATION: TECHNIQUE: Real-time complete transabdominal and transvaginal pelvic ultrasound with image documentation. Transvaginal imaging was used for better evaluation of the endometrium and adnexa. COMPARISON: No relevant prior studies available. FINDINGS: UTERUS/CERVIX: Unremarkable. No myometrial mass. The uterus measures 17.7 x 6.1 x 8.6 cm. The endometrial stripe measures 0.4 cm in thickness. RIGHT OVARY: Unremarkable. Normal blood flow. The right ovary measures 4.2 x 2.5 x 2.1 cm. LEFT OVARY: Unremarkable. Normal blood flow. The left ovary measures 4.2 x 1.9 x 1.8 cm. FREE FLUID: No free fluid. BLADDER: Unremarkable as visualized. Wall is normal thickness for degree of distention. US/Pelvic (Non ) IMPRESSION: No evidence of ovarian torsion. Reading [facility]
[2024-11-08] MEDS: 0.9% Normal Saline (1000mL) 1,000 ML 999 ML IV (14:04)
[2024-11-08] MEDS: Ketorolac 15 MG/ML Vial IV (14:04)
[2024-11-08 14:09] LABS: Absolute Lymphocyte Count 1.44 X10^3/uL (0.83-4.51); Absolute Neutrophil Count 4.5 X10^3/uL (2.0-7.7); Basophil# 0.03 X10^3/uL; Basophil% 0.5 % (0-1); Eosinophil# 0.13 X10^3/uL; Hematocrit 37.9 % (37-47); Hemoglobin 12.3 g/dL (12.0-15.0); Lymphocyte # 1.44 X10^3/ul (0.83-4.51); Lymphocyte % 22.5 % (19-41); Mean Corp Hgb Conc 32.5 g/dL (32-36); Mean Corpuscular Hgb 28.3 pg (27.0-32.0); Mean Corpuscular Volume 87.1 fL (81-99); Mean Platelet Vol. 9.3 fl (6.2-12.0); Monocyte# 0.31 X10^3/uL; Monocyte% 4.8 % (0-10); NRBC Flagged by Analyzer 0 % (0-5); Neutrophil # 4.47 X10^3/uL (2.7-7.7); Neutrophil % 69.9 % (47-70); Platelet Count 312 K/mm3 (150-450); RBC Distribution Width SD 41.6 fl (35.1-43.9); Red Blood Count 4.35 M/mm3 (4.2-5.4); White Blood Count 6.4 K/mm3 (4.4-11.0)
[2024-11-08 15:00] LABS: Lactic Acid 0.7 mmol/L (0.4-1.9)
[2024-11-08 15:13] LABS: ALB/GLOB Ratio 0.7 RATIO (0.9-2.4); AST(SGOT) 20 U/L (15-37); Alanine Aminotransfer ALT/SGPT 42 U/L (13-56); Albumin, Serum 2.8 g/dL (3.2-5.0); Alkaline Phosphatase 91 U/L (45-117); Anion Gap 7 (5-15); BUN 12 mg/dL (7-18); BUN/Creat Ratio 14.2 RATIO (10-20); Calcium,Total 9.4 mg/dL (8.5-10.1); Chloride 106 mmol/L (98-107); Creatinine, Serum 0.84 mg/dL (0.55-1.02); EST Glomerular Filtration Rate 85 mL/min (>60); Est Glom Filt Rate - Afr Amer 103 mL/min (>60); Estimated Creatinine Clearance 103.07 ml/min; Globulin 3.9 g/dL (2.2-4.2); Glucose 82 mg/dL (74-106); Lipase 25 U/L (73-393); Potassium 3.9 mmol/L (3.5-5.1); Protein, Total 6.7 g/dL (6.4-8.2); Sodium Level 140 mmol/L (136-145)
[2024-11-08 15:17] VITALS: BP 132/68; PULSE 82; RESP 14; O2SAT 98
[2024-11-08 15:46] LABS: Bacteria 0 SEEN /hpf (None Seen); Mucous, Urine 0 SEEN /hpf (<or=2+); Red Blood Cells-Urine 0 SEEN /hpf (0-5); Squamous Epithelial Cells - UA 0 SEEN /hpf (5-10)
[2024-11-08 15:53] LABS: Color, Urine Yellow (Yellow); Glucose, Dipstick Normal (Normal); Ketone-Dipstick Negative (Negative); Leukocyte Esterase-Dipstick 100 /ul (Negative); Nitrite-Dipstick Negative (Negative); Occult Blood-Urine 50 /ul (Negative); Protein-Dipstick Negative (Negative); Urine Bilirubin Dipstick Negative (Negative); Urine Clarity Sl. Cloudy (Clear); Urine Urobilinogen Normal (Normal)
--- NOTE | 2024-11-08 16:12 | CT_ITS ---
PROCEDURE: ABDOMEN/PELVIS W IV CONT ONLY REASON FOR EXAM: Natural ; low pelvic pain. TECHNIQUE: Abdomen and pelvis CT with intravenous contrast. COMPARISON: None. FINDINGS: Lung bases: Clear Liver: Unremarkable. Gallbladder: Unremarkable. Spleen: The spleen measures 14.0 cm in length. Pancreas: Unremarkable. Adrenals: Unremarkable. Kidneys: Unremarkable. Bladder: Unremarkable. Reproductive Organs: Enlarged uterus in keeping with recent . Bowel: Dense colonic stool which can suggest constipation. Normal caliber small bowel. Appendix: Normal. Lymph nodes: No suspicious lymph node enlargement. Vasculature: Major vascular structures are unremarkable. Peritoneum / Retroperitoneum: No ascites. No free air. Bones: Unremarkable. CT/Abdomen/Pelvis W IV Cont ONLY IMPRESSION: No acute abnormalities of the abdomen or pelvis. Enlarged uterus in keeping with recent . Splenomegaly. Dense colonic stool which can suggest constipation. One or more dose reduction techniques were used (e.g., Automated exposure contr ol, adjustment of the mA and/or kV according to patient size, use of iterative reconstruction technique). Reading Location: [id number]
--- NOTE | 2024-11-08 16:56 | EDS_ITS ---
HPI HPI - GI History of Present Illness Chief Complaint: Abd Pain Informant: patient Narrative Narrative: Patient is a 29-year-old female who is 10 days status post vaginal delivery. Patient was induced secondary to polyhydramnios but had an uneventful and smooth delivery. She follows with Dr. Andres Jones. She states she is been doing well and has been breast-feeding. She notes that she has had some lower abdominal pain for a minute or 2 after eating sweets since she delivered but thought that was may be just symptom. She is she woke up around 11:30 AM and nursed her son. Around 09/02/2012 this pain in her left lower abdomen that goes across to her abdomen and up into the right upper quadrant. The pain was quite severe and she states it was sharp and worse than a contraction. She called 911 and was brought to the emergency room. She was given 50 mcg of fentanyl and 4 mg IV Zofran and route. She was her pain is subsided. She does have a history of ovarian cyst. She states she last ate at 8 AM. She denies any painful urination or hematuria. She states that she has had what she considers normal vaginal bleeding. Denies any abnormal vaginal discharge or odor. She states has been having good bowel movements. No other complaints or concerns at this time. [facility] Medical History Rubella non-immune status, antepartum Spontaneous miscarriage Active labor 34 weeks gestation of Anemia affecting Influenza vaccination declined Supervision of normal first Spotting Spotting in early No significant past medical history Home Medications ?Medication ?Instructions ?Recorded ?Last Taken ?Type polyethylene glycol 3350 17 17 g PO DAILY #119 grams 0 11/08/24 Unknown Rx gram/dose oral powder (Miralax) simethicone 125 mg chewable tablet 125 mg PO TID PRN a bdominal 11/08/24 Unknown Rx distention or pain #20 tabs Allergy/AdvReac Type Severity Reaction Status Date / Time No Known Allergies Allergy Verified 11/08/24 13:22 Family History Father Hypertension Grandmother Cancer Heart disease Surgical History No significant past surgical history Social History adopted: No household members: spouse and children housing: house number of children: 1 current occupational status: unemployed 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 current occupational exposures/hazards: No pets and animals: No history of recent travel: Yes ([place]) out of state: Yes out of country: Yes sexually active: Yes Smoking Status: Never smoker second hand exposure: Yes alcohol intake: never substance use type: does not use well-balanced diet: daily or most days caffeine: No eating out: rarely or never during the past year weight has: remained stable what type of physical activity do you participate in: none cornelius/mandaeism: Muslim seatbelt use: sometimes do you feel safe at home: Yes additional social history: Ambrosio- trent and reroofing ROS ROS ED Constitutional Constitutional ED: Denies chills or fever(s) Respiratory/Chest Respiratory/Chest: Denies cough Gastrointestinal Gastrointestinal: Reports abdominal pain and nausea; Denies constipation, diarrhea, melena or vomiting Genitourinary Genitourinary ED: Reports other Details: Denies any abnormal vaginal discharge, positive vaginal bleeding ; Denies dysuria or hematuria Musculoskeletal Musculoskeletal: Denies arthralgias or myalgias Integumentary Denies rash Neurologic Neurologic: Denies weakness Psychiatric Psychiatric: Denies anxiety Hematologic/Lymphatic Hematologic/Lymphatic: Denies easy bleeding or easy bruising EXAM Physical Exam Const Vital Signs: 11/08/24 13:18 11/08/24 15:17 11/08/24 17:00 Temperature 98.1 F Temperature Source Oral Pulse Rate 83 82 86 Respiratory Rate 16 14 14 Blood Pressure 123/88 H 132/68 H 127/90 H Blood Pressure Mean 99 89 102 Pulse Ox 100 98 100 Oxygen Delivery Method Room Air Positive well nourished and well developed General Appearance ED: well developed and NAD; Negative for pallor HEENT Reports moist mucous membranes Neck supple Resp normal respiratory effort and clear to auscultation bilaterally Cardio regular rate, regular rhythm and no murmurs GI non-distended GI Narrative: Negative Boyd sign Inspection: Negative for abdominal distention Auscultation: normoactive bowel sounds Palpation: soft and tender LLQ, RLQ and suprapubic; Negative for guarding or rigid Back/Spine no CVA tenderness Extremity full ROM General Extremety ED: Negative for edema General Extremity: Negative for edema Neuro Sensorium / Orientation: alert Motor Exam: Negative for general weakness Psych mental status grossly normal and thought process normal Skin General Skin Exam: Negative for jaundice or pallor MDM MDM MDM Narrative Medical decision making narrative: Patient is 10 days and evaluate for sudden onset of lower abdominal pain that radiates across her abdomen. Patient has improvement of pain with IV fentanyl which she received en route via EMS. Vital signs are normal. Differential includes ovarian torsion, endometritis, urinary tract infection, appendicitis, diverticulitis and renal colic. Given that she was in her normal state of health and doing well until suddenly at 1130 lower suspicion for an infectious etiology. CBC, CMP, lactate urinalysis obtained. These were all largely normal. She is given further Toradol and IV fluids in the emergency room. She notes her pain is come back but is not as severe as it was before. Initially a pelvic ultrasound ordered to rule out ovarian torsion given her history of ovarian cysts, status and sudden onset of pelvic pain. This is negative. Will add on CT of the abdomen and pelvis for further evaluation of the cause of her pain. Anticipate if this does not show any acute process will discuss results with her literature professor for further recommendations. If CT does show cause of her pain we will treat/address accordingly. Patient be signed out to oncoming physician pending CT results. Patient overall is well-appearing dissipate she can be discharged home. CT does not show any acute process but does show dense colonic stool which could suggest constipation. It is possible her pain is related to constipation. Given her reassuring workup improvement of pain will be discharged home with prescription for MiraLAX as well as simethicone. Given return precautions. 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 Patient discharged home in stable improved condition. Lab Data Attestation: I reviewed the patient's lab results. Labs: Laboratory Results - last 24 hr 11/08/24 11/08/24 11/08/24 13:25 14:05 15:35 WBC 6.4 RBC 4.35 Hgb 12.3 Hct 37.9 MCV 87.1 MCH 28.3 MCHC 32.5 RDW Std Deviation 41.6 RDW Coeff of Ally 13.0 Plt Count 312 MPV 9.3 Immature Gran % (Auto) 0.300 Neut % (Auto) 69.9 Lymph % (Auto) 22.5 [place] % (Auto) 4.8 Eos % (Auto) 2.0 Baso % (Auto) 0.5 Absolute Neuts (auto) 4.5 Absolute Lymphs (auto) 1.44 Nucleated RBC % 0 Sodium 140 Potassium 3.9 Chloride 106 Carbon Dioxide 27.0 Anion Gap 7 BUN 12 Creatinine 0.84 Estim Creat Clear Calc 103.07 Est GFR (MDRD) Af Amer 103 Est GFR (MDRD) Non-Af 85 BUN/Creatinine Ratio 14.2 Glucose 82 Lactic Acid 0.7 Calcium 9.4 Total Bilirubin 0.30 AST 20 ALT 42 Alkaline Phosphatase 91 Total Protein 6.7 Albumin 2.8 L Globulin 3.9 Albumin/Globulin Ratio 0.7 L Lipase 25 L Urine Color Yellow Urine Clarity Sl. Cloudy Urine pH 8.0 Ur Specific [place] 1.010 Urine Protein Negative Urine Glucose (UA) Normal Urine Ketones Negative Urine Occult Blood 50 H Urine Nitrite Negative Urine Bilirubin Negative Urine Urobilinogen Normal Ur Leukocyte Esterase 100 H Urine RBC 0 SEEN Urine WBC 0-5 SEEN Ur Squamous Epith Cells 0 SEEN Urine Bacteria 0 SEEN Urine Mucus 0 SEEN Radiography Diagnostic Testing: Clinical Impression(s) from Imaging Studies Pelvis Ultrasound 11/08/24 13:59 IMPRESSION: No evidence of ovarian torsion. Reading Location: [facility] Abdomen/Pelvis CT 11/08/24 16:12 IMPRESSION: No acute abnormalities of the abdomen or pelvis. Enlarged uterus in keeping with recent . Splenomegaly. Dense colonic stool which can suggest constipation. One or more dose reduction techniques were used (e.g., Automated exposure control, adjustment of the mA and/or kV according to patient size, use of iterative reconstruction technique). Reading Location: [id number] Discharge Plan Triage Chief Complaint: Abd Pain ED Provider: Liza Nowak Dx/Rx/DC Orders Clinical Impression: Abdominal pain, Vaginal delivery, Constipation Instructions: ED Abdominal Pain Unkn Cause Fem, ED Constipation (Adult) Prescriptions: New polyethylene glycol 3350 [Miralax] 17 gram/dose powder 17 g PO DAILY Qty: 119 0RF simethicone 125 mg tablet,chewable 125 mg PO TID PRN (Reason: abdominal distention or pain) Qty: 20 0RF Primary Care Provider: Luis Prather Referrals: Luis Prather DO [Primary Care Provider] - Cele Mcknight MD [Med Staff - Active Staff] - Activity Restrictions/Additional Instructions: Your workup overall was very normal today. Your CT did show a large burden of stool in the colon which is suspect is causing her pain. Does not appear to be any complication associate with recent delivery. Make sure drinking plenty of fluids. You have been started on MiraLAX as well as simethicone to hopefully help with your symptoms. Try to eat high-fiber foods as well. Print Language: Citizen Of [place] Disposition Disposition: Home, Self Care
[2024-11-08 17:00] VITALS: BP 127/90; PULSE 86; RESP 14; O2SAT 100
[2024-11-08 17:12] LABS: White Blood Cells 0-5 SEEN /hpf (0-5)
[2024-11-08 17:43] VITALS: BP 125/83; PULSE 86; RESP 16; TEMP 36.6; O2SAT 99
== END 2024-11-08 17:46 | disposition home or self-care (01) ==
PROVIDERS: Emergency Provider Emergency Medicine; PCP Family Medicine; Referring Provider Emergency Medicine; Visit Provider Emergency Medicine
DX: R10.32 Left lower quadrant pain (principal); K59.00 Constipation, unspecified; R10.11 Right upper quadrant pain
CPT/HCPCS: 74177; 76856; 80053; 81001; 83605; 83690; 85025; 96361; 96374; 99284; Q9967; A4216